=== PATIENT | male | born 1940 | race Caucasian/White ===

== ENCOUNTER 2017-03-12 10:52 | Inpatient (IN) | payer MEDICARE, OTHER ==
[~2017-03-12] VITALS: Ht 172.7 cm; Wt 50.7 kg
[~2017-03-12 10:52] MED LIST: 1-ME1LIQ PO; ASPI81TA82 PO; DUONI NEB; NEBUMIS6 INH
[2017-03-12 10:54] VITALS: BP 132/64; PULSE 120; RESP 16; TEMP 98.2; O2SAT 98
[2017-03-12 11:24] VITALS: BP 169/92; PULSE 114; RESP 19; O2SAT 99
[2017-03-12] MEDS ORDERED: CEFEPIME INJ 1,000 MG in SODIUM CHLORIDE 0.9% INJ 100 ML IV ONE (12:15)
[2017-03-12 12:27] LABS: AUTOMATED NEUTROPHIL # 0.4 TH/MM3 (1.8-7.7); BASOPHIL % 1.4 % (0.0-2.0); EOSINOPHIL % 4.9 % (0.0-4.0); HEMATOCRIT 29.8 % (39.0-51.0); LYMPH % 21.7 % (9.0-44.0); LYMPHOCYTE # 0.2 TH/MM3 (1.0-4.8); MEAN CELL VOLUME 85.4 FL (80.0-100.0); MEAN CORPUSCULAR HEMOGLOBIN 27.7 PG (27.0-34.0); MEAN CORPUSCULAR HGB CONC 32.5 % (32.0-36.0); MONO % 20.9 % (0.0-8.0); NEUT % 51.1 % (16.0-70.0); PLATELET COUNT 123 TH/MM3 (150-450); RED BLOOD COUNT 3.49 MIL/MM3 (4.50-5.90); RED CELL DISTRIBUTION WIDTH 19.8 % (11.6-17.2); WHITE BLOOD COUNT 0.9 TH/MM3 (4.0-11.0)
[2017-03-12 12:28] LABS: HEMO FLAGS AUTO DIFF
[2017-03-12] MEDS ORDERED: RESP: ALBUTEROL 0.63 MG/3 ML NEB (PRN) NEB (12:45)
[2017-03-12] MEDS ORDERED: ENALAPRILAT 1.25 MG/ML VIAL IV PUSH PRN (12:45)
[2017-03-12 12:50] LABS: ANION GAP 8 MEQ/L (5-15); AST (GOT) 17 U/L (15-37); BICARBONATE 24.5 MEQ/L (21.0-32.0); BLOOD UREA NITROGEN 17 MG/DL (7-18); CHLORIDE 107 MEQ/L (98-107); GLOMERULAR FILTRATION RATE 81 ML/MIN (>89); SODIUM (NA) 139 MEQ/L (136-145)
--- NOTE | 2017-03-12 12:50 | HHI.HP ---
[facility] No Primary Care Physician Admission Diagnosis neutropenic fever. Diagnoses: (1) Neutropenic fever Diagnosis: Principal Chief Complaint: ' my white cell count is low'. Travel History International Travel<30 Days: No Contact w/Intl Traveler <30 Da: No Traveled to Known Affected Are: No History of Present Illness patient is a 76 y/o male with history of metastatic rectal cancer with metastasis to the liver and the lung, was sent from his oncologist's office for further evaluation of neutropenic fever. he was diagnosed with rectal cancer in 2009 and has been on palliative chemotherapy; the last chemo session was two weeks ago. he says that he had a blood test done earlier which showed neutropenia. he reports on and off fever for the past few days; highest temperature was 100.8. otherwise he denies any new specific symptoms; no sob, productive cough, headache, chest pain, abdominal pain or urinary complaints. he was sent to ER by for further evaluation. Review of Systems Constitutional: COMPLAINS OF: Fever, DENIES: Weight loss, Chills, Night Sweats Eyes: DENIES: Blurred vision, Diplopia, Vision loss, Double Vision Ears, nose, mouth, throat: DENIES: Tinnitus, Vertigo, Throat pain, Epistaxis Respiratory: DENIES: Apneas, Cough, Snoring, Wheezing, Hemoptysis, Sputum production, Shortness of breath Cardiovascular: DENIES: Chest pain, Palpitations, Syncope, Dyspnea on Exertion , PND, Lower Extremity Edema, Orthopnea, Claudication Gastrointestinal: DENIES: Abdominal pain, Black stools, Bloody stools, Constipation, Diarrhea, Nausea, Vomiting, Difficulty Swallowing, Anorexia Genitourinary: DENIES: Urinary frequency, Urgency, Hematuria, Dysuria Musculoskeletal: DENIES: Joint pain, Muscle aches, Stiffness, Joint Swelling Integumentary: DENIES: Rash Neurologic: DENIES: Abnormal gait, Headache, Localized weakness, Paresthesias, Seizures, Speech Problems, Tremor, Poor Balance Psychiatric: DENIES: Anxiety, Confusion, Mood changes, Depression, Hallucinations, Agitation, Suicidal Ideation, Homicidal Ideation, Delusions Past Family Social History Past Medical History rectal cancer hypertension Past Surgical History tumor resection from the liver. port placement. Reported Medications neb treatment aspirin Allergies: Coded Allergies: No Known Allergies (Verified , 10/12/15) Active Ordered Medications Current Medications Cefepime HCl 1000 mg/Sodium Chloride 100 ml @ 200 mls/hr ONCE ONCE IV Last administered on 03/12/17t 12:28; Start 03/12/17 at 12:15; Stop 03/12/17 at 12 :44 Family History ovarian cancer in mother. Social History no smoking or drinking. Physical Exam Vital Signs Vital Signs Date Time Temp Pulse Resp B/P (MAP) Pulse Ox O2 Delivery O2 Flow Rate FiO2 03/12/17 11:24 114 19 169/92 (117) 99 Room Air 03/12/17 10:54 98.2 120 16 132/64 (86) 98 Physical Exam GENERAL: This is a well-nourished, well-developed patient, in no apparent distress. SKIN: No rashes, ecchymoses or lesions. Cool and dry. HEAD: Atraumatic. Normocephalic. No temporal or scalp tenderness. EYES: Pupils equal round and reactive. Extraocular motions intact. No scleral icterus. No injection or drainage. ENT: Nose without bleeding, purulent drainage or septal hematoma. Throat without erythema, tonsillar hypertrophy or exudate. Uvula midline. Airway patent. NECK: Trachea midline. No JVD or lymphadenopathy. Supple, nontender, no meningeal signs. CARDIOVASCULAR: Regular rate and rhythm without murmurs, gallops, or rubs. RESPIRATORY: Clear to auscultation. Breath sounds equal bilaterally. No wheezes , rales, or rhonchi. GASTROINTESTINAL: Abdomen soft, non-tender, nondistended. No hepato-splenomegaly , or palpable masses. No guarding. MUSCULOSKELETAL: Extremities without clubbing, cyanosis, or edema. No joint tenderness, effusion, or edema noted. No calf tenderness. Negative Homans sign bilaterally. NEUROLOGICAL: Awake and alert. Cranial nerves II through XII intact. Motor and sensory grossly within normal limits. Five out of 5 muscle strength in all muscle groups. Normal speech. Laboratory Laboratory Tests Test 03/12/17 12:00 White Blood Count 0.9 Red Blood Count 3.49 Hemoglobin 9.7 Hematocrit 29.8 Mean Corpuscular Volume 85.4 Mean Corpuscular Hemoglobin 27.7 Mean Corpuscular Hemoglobin Concent 32.5 Red Cell Distribution Width 19.8 Platelet Count 123 Mean Platelet Volume 6.9 Neutrophils (%) (Auto) 51.1 Lymphocytes (%) (Auto) 21.7 Monocytes (%) (Auto) 20.9 Eosinophils (%) (Auto) 4.9 Basophils (%) (Auto) 1.4 Neutrophils # (Auto) 0.4 Lymphocytes # (Auto) 0.2 Monocytes # (Auto) 0.2 Eosinophils # (Auto) 0.0 Basophils # (Auto) 0.0 CBC Comment AUTO DIFF Date/Time Source Procedure Growth Status 03/12/17 12:00 Blood Peripheral Aerobic Blood Culture Pending Received 03/12/17 12:00 Blood Peripheral Anaerobic Blood Culture Pending Received Result Diagram: 03/12/17 1200 Yvanrinmateusz VTE Risk Assessment Caprini VTE Risk Assessment: Mod/High Risk (score >= 2) Caprini Risk Assessment Model Point Value = 1 Point Value = 2 Point Value = 3 Point Value = 5 Age 41-60 Minor surgery BMI > 25 kg/m2 Swollen legs Varicose veins or History of unexplained or recurrent spontaneous Oral contraceptives or hormone replacement Sepsis (< 1 month) Serious lung disease, including pneumonia (< 1 month) Abnormal pulmonary function Acute myocardial infarction Congestive heart failure (< 1 month) History of inflammatory bowel disease Medical patient at bed rest Age 61-74 Arthroscopic surgery Major open surgery (> 45 min) Laparoscopic surgery (> 45 min) Malignancy Confined to bed (> 72 hours) Immobilizing plaster cast Central venous access Age >= 75 History of VTE Family history of VTE Factor V Leiden Prothrombin [id number] Lupus anticoagulant Anticardiolipin antibodies Elevated serum homocysteine Heparin-induced thrombocytopenia Other congenital or acquired thrombophilia Stroke (< 1 month) Elective arthroplasty Hip, pelvis, or leg fracture Acute spinal cord injury (< 1 month) Prophylaxis Regimen Total Risk Factor Score Risk Level Prophylaxis Regimen 0-1 Low Early ambulation 2 Moderate Order ONE of the following: *Sequential Compression Device (SCD) *Heparin 5000 units SQ BID 3-4 Higher Order ONE of the following medications: *Heparin 5000 units SQ TID *Enoxaparin/Lovenox 40 mg SQ daily (WT < 150 kg, CrCl > 30 mL/min) *Enoxaparin/Lovenox 30 mg SQ daily (WT < 150 kg, CrCl > 10-29 mL/min) *Enoxaparin/Lovenox 30 mg SQ BID (WT < 150 kg, CrCl > 30 mL/min) AND/OR *Sequential Compression Device (SCD) 5 or more Highest Order ONE of the following medications: *Heparin 5000 units SQ TID (Preferred with Epidurals) *Enoxaparin/Lovenox 40 mg SQ daily (WT < 150 kg, CrCl > 30 mL/min) *Enoxaparin/Lovenox 30 mg SQ daily (WT < 150 kg, CrCl > 10-29 mL/min) *Enoxaparin/Lovenox 30 mg SQ BID (WT < 150 kg, CrCl > 30 mL/min) AND *Sequential Compression Device (SCD) Assessment and Plan Assessment and Plan A/P - neutropenic fever with history of metastatic rectal cancer on chemotherapy; start on IV Cefepime- follow the cultures and CXR- monitor CBC- consult oncology and ID -hypertension; will verify the home meds- vasotec prn for now. -thrombocytopenia- due to chemo- will monitor -DVT prophylaxis; on SCD's . Discussed Condition With ER physician and the patient. Physician Certification 2 Midnight Certification Type: Admission for Inpatient Services Order for Inpatient Services The services are ordered in accordance with Medicare regulations or non- Medicare payer requirements, as applicable. In the case of services not specified as inpatient-only, they are appropriately provided as inpatient services in accordance with the 2-midnight benchmark. Estimated LOS (days): 2 days is the estimated time the patient will need to remain in the hospital, assuming treatment plan goals are met and no additional complications. Post-Hospital Plan: Home Rajesh Galindo MD Mar 12, 2017 12:50
[2017-03-12 12:53] LABS: ALKALINE PHOSPHATASE 72 U/L (45-117); ALT (GPT) 15 U/L (12-78); TOTAL BILIRUBIN ADULT 0.4 MG/DL (0.2-1.0)
--- NOTE | 2017-03-12 13:00 | RADRPT ---
EXAM DATE/TIME: 03/12/2017 12:07 [place] COMPARISON: CHEST SINGLE AP, October 16, 2015, 5:03. CHEST PA & LAT, December 24, 2014, 14:13. INDICATIONS : Short of breath, fever MEDICAL HISTORY : Carcinoma, colon. Carcinoma, lung. SURGICAL HISTORY : infusaport ENCOUNTER: Initial ACUITY: 1 day PAIN SCORE: Non-responsive. LOCATION: Bilateral chest FINDINGS: [id number] implanted on the right. Elevation of the left hemidiaphragm with trace pleural effusio n and minimal parenchymal changes. Moderate peribronchial thickening on the right. The portion of th e bony skeleton visualized is unremarkable. CONCLUSION: Elevation of the left hemidiaphragm with trace fluid and minimal parenchymal changes left base; impr guy in interval. Jv Pierre MD FACR on March 12, 2017 at 12:57 Board Certified Radiologist. This report was verified electronically.
[2017-03-12 13:15] LABS: BANDS 25 % (0-6); BASOPHILS 1 % (0-2); EOSINOPHILS 3 % (0-4); METAMYELOCYTES 1 % (0-1); NEUTROPHIL # MANUAL DIFF 0.5 TH/MM3 (1.8-7.7); POLYS (SEG NEUTROPHILS) 34 % (16-70); TOXIC GRANULATION 2+ (NORMAL); WBC DIFF SAMPLE 100
[2017-03-12 13:16] LABS: OVALOCYTES 1+ (NORMAL); PLATELET ESTIMATE SMEAR LOW (NORMAL); PLATELET MORPHOLOGY ENLARGED (NORMAL); SCAN/DIFF FINAL DIFF MANUAL
[2017-03-12] MEDS ORDERED: ONDANSETRON HCL 4 MG/2 ML VIAL IV PUSH PRN (14:15)
[2017-03-12] MEDS ORDERED: ACETAMINOPHEN 325 MG TAB PO PRN (14:15)
[2017-03-12] MEDS ORDERED: SODIUM CHLOR 0.9% 1000 ML INJ 1,000 ML IV ONE (14:15)
[2017-03-12 14:21] LABS: BACTERIA, URINE RARE /hpf; BLOOD, URINE NEG (NEG); COMMENT (UR) CULT NOT INDICATED; CULTURE IF INDICATED CULT NOT INDICATED; GLUCOSE,URINE NEG (NEG); HYALINE CAST, URINE 3 /lpf (RARE); KETONE, URINE NEG (NEG); MUCUS URINE FEW /lpf (OCC); NITRITE,URINE NEG (NEG); PH, URINE 5.5 (5.0-8.5); SQUAMOUS EPITHELIAL CELL URINE <1 /hpf (0-5); URINE COLOR LIGHT-YELLOW (YELLW/STRAW)
[2017-03-12] MEDS ORDERED: AMLO10TA2 PO (14:48)
--- NOTE | 2017-03-12 15:33 | PD ---
HPI Chief Complaint: Abnormal Results Time Seen by Provider: 11:14 Travel History International Travel<30 days: No Contact w/Intl Traveler<30days: No Traveled to known affect area: No History of Present Illness HPI This is a 76-year-old male with a history of colorectal cancer with metastases to his lung and liver, presents here at the request of his oncologist for neutropenic fever. The patient had low-grade fever over the last 4 days. He reports a cough with white phlegm. He denies any dysuria urgency or frequency. PFSH Past Medical History Arthritis: Yes Asthma: No Blood Disorders: No Anxiety: No Depression: No Heart Rhythm Problems: No Cancer: Yes (COLON, METS TO LIVER AND LUNG) Cardiovascular Problems: Yes High Cholesterol: No Chemotherapy: Yes Chest Pain: No Congestive Heart Failure: No COPD: No Diabetes: No Diminished Hearing: No Endocrine: No Gastrointestinal Disorders: Yes (HX COLON CA) GERD: Yes Genitourinary: No Hepatitis: No Hiatal Hernia: No Hypertension: Yes Immune Disorder: No Implanted Vascular Access Dvce: Yes (R SC PORT) Medical other: Yes (HAS HAD RADIATION X2 , CHEMOTHERAPY) Musculoskeletal: Yes (ARTHRITIS) Neurologic: No Psychiatric: No Reproductive: No Respiratory: Yes (LUNG CANCER, PNEUMONIA 12/2014) Immunizations Current: Yes Radiation Therapy: Yes (ABOUT A YR AGO) Sleep Apnea: No Thyroid Disease: No Past Surgical History Abdominal Surgery: Yes (LEFT PARTIAL LOBE OF LIVER REMOVED, COLON RESECTION) AICD: No Body Medical Devices: RIGHT IMPLANTED PORT Cardiac Surgery: No Ear Surgery: No Endocrine Surgery: No Eye Surgery: No Genitourinary Surgery: No Gynecologic Surgery: No Joint Replacement: No Oral Surgery: Yes Pacemaker: No Thoracic Surgery: Yes (RIGHT IMPLANTED PORT) Other Surgery: Yes Social History Alcohol Use: No Tobacco Use: No (QUIT 4 YEARS AGO) Substance Use: No Allergies-Medications (Allergen,Severity, Reaction): Coded Allergies: No Known Allergies (Verified , 10/12/15) Reported Meds & Prescriptions Reported Meds & Active Scripts Active Reported Amlodipine (Amlodipine Besylate) 10 Mg Tab 10 Mg PO DAILY Review of Systems Except as stated in HPI: all other systems reviewed are Neg General / Constitutional: Positive: Fever HENT: No: Headaches, Lightheadedness Cardiovascular: No: Chest Pain or Discomfort, Palpitations Respiratory: Positive: Cough, No: Shortness of Breath (white phlegm), Wheezing Gastrointestinal: No: Nausea, Vomiting, Abdominal Pain Genitourinary: No: Frequency, Dysuria, Decreased Urinary Output Skin: No Rash, No Lesions Neurologic: Positive: Weakness, No: Headache Physical Exam Narrative GENERAL: Thin ill appearing male in no acute respiratory distress. SKIN: Focused skin assessment warm/dry. HEAD: Atraumatic. Normocephalic. EYES: No scleral icterus. No injection or drainage. ENT: No nasal bleeding or discharge. Mucous membranes pink and moist. NECK: Trachea midline. Supple. CARDIOVASCULAR: Regular rate and rhythm. No murmur appreciated. RESPIRATORY: No accessory muscle use. Clear to auscultation. Breath sounds equal bilaterally. Decreased respiratory effort GASTROINTESTINAL: Abdomen soft, non-tender, nondistended. MUSCULOSKELETAL: No obvious deformities. No clubbing. No cyanosis. No edema. NEUROLOGICAL: Awake and alert. No obvious cranial nerve deficits. Motor grossly within normal limits. Normal speech. PSYCHIATRIC: Appropriate mood and affect; insight and judgment normal. Data Data Last Documented VS Vital Signs Date Time Temp Pulse Resp B/P (MAP) Pulse Ox O2 Delivery O2 Flow Rate FiO2 03/12/17 11:24 114 19 169/92 (117) 99 Room Air 03/12/17 10:54 98.2 Orders Orders Complete Blood Count With Diff (03/12/17 11:45) Comprehensive Metabolic Panel (03/12/17 11:45) Blood Culture (03/12/17 11:45) Urinalysis - C+S If Indicated (03/12/17 11:45) Chest, Pa & Lat (03/12/17 11:45) Iv Access Insert/Monitor (03/12/17 11:45) Ecg Monitoring (03/12/17 11:45) Oximetry (03/12/17 11:45) Cefepime Inj (Maxipime Inj) (03/12/17 12:15) Diet Heart Healthy (03/12/17 Lunch) Vital Signs (Adult) MARKEL.Q4H (03/12/17 12:33) Consult Medical Oncology (03/12/17 ) Consult Infectious Disease (03/12/17 ) Complete Blood Count With Diff (03/13/17 06:00) ^ Other Nursing Orders (03/12/17 12:33) Scd Bilateral/Knee High MARKEL.QSHIFT (03/12/17 12:33) Cefepime Inj (Maxipime Inj) (03/12/17 21:00) (Hub Use Only)Inp Phy Cons/Ref (03/12/17 ) (Hub Use Only)Inp Phy Cons/Ref (03/12/17 ) Admit To Inpatient (03/12/17 ) Inpatient Certification (03/12/17 ) Enalaprilat Inj (Vasotec Inj) (03/12/17 12:45) Albuterol Neb (Albuterol Neb) (03/12/17 12:45) Admit Order (Ed Use Only) (03/12/17 12:57) Labs Laboratory Tests Test 03/12/17 12:00 White Blood Count 0.9 TH/MM3 Red Blood Count 3.49 MIL/MM3 Hemoglobin 9.7 GM/DL Hematocrit 29.8 % Mean Corpuscular Volume 85.4 FL Mean Corpuscular Hemoglobin 27.7 PG Mean Corpuscular Hemoglobin Concent 32.5 % Red Cell Distribution Width 19.8 % Platelet Count 123 TH/MM3 Mean Platelet Volume 6.9 FL Neutrophils (%) (Auto) 51.1 % Lymphocytes (%) (Auto) 21.7 % Monocytes (%) (Auto) 20.9 % Eosinophils (%) (Auto) 4.9 % Basophils (%) (Auto) 1.4 % Neutrophils # (Auto) 0.4 TH/MM3 Lymphocytes # (Auto) 0.2 TH/MM3 Monocytes # (Auto) 0.2 TH/MM3 Eosinophils # (Auto) 0.0 TH/MM3 Basophils # (Auto) 0.0 TH/MM3 CBC Comment AUTO DIFF Differential Total Cells Counted 100 Neutrophils % (Manual) 34 % Band Neutrophils % 25 % Lymphocytes % 24 % Monocytes % 12 % Eosinophils % 3 % Basophils % 1 % Neutrophils # (Manual) 0.5 TH/MM3 Metamyelocytes 1 % Differential Comment FINAL DIFF MANUAL Toxic Granulation 2+ Platelet Estimate LOW Platelet Morphology Comment ENLARGED Ovalocytes 1+ Blood Urea Nitrogen 17 MG/DL Creatinine 0.91 MG/DL Random Glucose 104 MG/DL Total Protein 6.3 GM/DL Albumin 2.9 GM/DL Calcium Level 8.4 MG/DL Alkaline Phosphatase 72 U/L Aspartate Amino Transf (AST/SGOT) 17 U/L Alanine Aminotransferase (ALT/SGPT) 15 U/L Total Bilirubin 0.4 MG/DL Sodium Level 139 MEQ/L Potassium Level 4.0 MEQ/L Chloride Level 107 MEQ/L Carbon Dioxide Level 24.5 MEQ/L Anion Gap 8 MEQ/L Estimat Glomerular Filtration Rate 81 ML/MIN MDM Medical Decision Making Medical Screen Exam Complete: Yes Emergency Medical Condition: Yes Differential Diagnosis Neutropenia versus pancytopenia versus pneumonia versus UTI Narrative Course 76-year-old male presents with low blood count. Patient was called by his oncologist told to come in for admission. The patient has a mask in place when he arrived. No obvious source for his fever. The patient's been started on cefepime. He'll be admitted to the [facility] service. Diagnosis Primary Impression: Neutropenic fever Additional Impressions: Anemia Metastasis from rectal cancer Admitting Information Admitting Physician Requests: Admit Charles Medellin MD Mar 12, 2017 15:33
[2017-03-12 16:00] VITALS: BP 155/74; PULSE 110; RESP 17; TEMP 99.4; O2SAT 93
--- NOTE | 2017-03-12 19:47 | MB ---
cc: SOCOTER QUINONEZ M.D. DATE OF CONSULTATION 03/12/17 REASON FOR CONSULTATION Consult requested by hospitalist for followup of metastatic colon cancer in a patient who is admitted for neutropenic fever and sepsis. HISTORY OF PRESENT ILLNESS Fox is a 76-year-old male. He is well-known to me. He was diagnosed with colon cancer with liver and lung metastasis in January 2010. The patient had been treated with multiple lines of chemotherapy including FOLFOX, Avastin and now he is on FOLFIRI and Avastin. The patient has had significant response from the treatment. He has been running low grade fever and complaining of abdominal pain and postnasal drainage. He had called our office last week, Sunday. He was advised that he needs to report to the emergency room as he has neutropenia. However, the patient elected not to go to the emergency room. All weekend he stated that he was taking Tylenol and his fever comes down but then it goes up. He was feeling miserable over the weekend. Since he had an appointment with me today he decided to wait until he comes to the office this morning. The patient states that his temperature sometimes runs 95 then it goes up to 101 and when he takes the Tylenol or Motrin it comes down. He has been complaining of abdominal pain mostly on the right side which is mild to moderate. He denies any nausea or vomiting. He is complaining of anorexia. He denies any diarrhea or constipation. His CBC in the office this morning showed white count of 1.1, hemoglobin 10, platelet count 140, absolute neutrophil count of only 500. Because of severe neutropenia and running fever for almost 1 week I have advised him to come to the emergency room for further evaluation. In the emergency room Dr. Charles Medellin saw him and clearly looks ill. Dr. Moser had called me and we discussed that the patient should be admitted to the hospital for neutropenic sepsis. Blood culture and urine culture and chest x-ray were obtained and he was started on cefepime. The patient has been admitted by [facility] hospitalist. I have been asked to see the patient. The patient is in the room with his . His temperature is 99.4 at the present time, heart rate is 110, blood pressure is 155/74, O2 saturation 93%. He is still complaining of on-and-off abdominal pain but associated with no diarrhea or constipation or nausea or vomiting. He is complaining of postnasal drip. He denies any chills. The rest of the review of system is negative. PAST MEDICAL HISTORY Gastroesophageal reflux disease, asbestosis, hypertension, metastatic rectal cancer with metastasis to the liver and lung. PAST SURGICAL HISTORY Colon resection, cholecystectomy, [id number] placement. ALLERGIES None. MEDICATIONS 1. Amlodipine. 2. Avastin. 3. FOLFIRI chemotherapy. FAMILY HISTORY The patient's family history is not contributing to his HPI. SOCIAL HISTORY The patient does not smoke cigarettes, does not drink alcohol. He is and lives with his . PHYSICAL EXAMINATION GENERAL: Well-developed, well-nourished white male in no apparent distress. VITAL SIGNS: Temperature 99.4, heart rate is 110, blood pressure is 155/74. HEENT: PERRLA, EOMI, anicteric. No oral lesions noted. NECK: No lymphadenopathy noted. LUNGS: Lungs are clear. No wheezing, rhonchi or rales. HEART: Regular rate and rhythm. ABDOMEN: Abdomen is soft, diffusely tender. EXTREMITIES: No pedal edema. NEUROLOGY: Awake, alert, oriented x3. SKIN: No significant lesions are noted. ASSESSMENT 1. Severe neutropenia and bandemia with fever , most likely sepsis. 2. Anemia and thrombocytopenia due to the chemotherapy. 3. Metastatic rectal cancer currently on Avastin and FOLFIRI chemotherapy. 4. Hypertension stable. PLAN I have reviewed his available records on the EMR. I discussed with the patient and his who was present at the bedside. His CBC was repeated in the emergency room and the white count is down to 0.9, hemoglobin 9.7, platelet count is 123, absolute neutrophil count is 240. The patient has 25% bandemia. The comprehensive metabolic profile from today is normal except GFR is 81, calcium is 8.4, total protein is 6.3, albumin is 2.9. Urinalysis is negative.Urine Culture is not indicated. The blood cultures were done, the results of those are still pending. Chest x-ray does not show any pneumonia. There is elevation of the left hemidiaphragm with trace fluid and minimal parenchymal changes noted in the left base improved in interval. The source of fever is unknown at the present time but the patient needs to be treated with empiric IV antibiotic for neutropenic fever/sepsis. He is currently on cefepime. I will start him on Neupogen 480 micrograms for severe neutropenia. I discussed the side effects of the Neupogen. The patient has agreed. Further recommendation based on his hospital stay. Thank you for asking my opinion. Apoorva Quinonez MD /RENNY /6:57 PM /7:22 PM MTDD
[2017-03-12 20:00] VITALS: BP 147/94; PULSE 102; RESP 18; TEMP 97.8; O2SAT 94
[2017-03-12] MEDS ORDERED: CEFEPIME INJ 2,000 MG in SODIUM CHLORIDE 0.9% INJ 100 ML IV SCH (21:00)
[2017-03-12] MEDS: FILGRASTIM 480 MCG/1.6 ML VIAL SQ SCH (21:33)
[2017-03-12] MEDS: CEFEPIME INJ 2,000 MG in SODIUM CHLORIDE 0.9% INJ 100 ML IV SCH (21:34)
[2017-03-13] VITALS: BP 133/94; PULSE 98; RESP 18; TEMP 98.5; O2SAT 96
[2017-03-13 04:00] VITALS: BP 110/63; PULSE 92; RESP 18; TEMP 97.4; O2SAT 97
[2017-03-13] MEDS: CEFEPIME INJ 2,000 MG in SODIUM CHLORIDE 0.9% INJ 100 ML IV SCH ×3 (05:38→20:01)
[2017-03-13 06:01] LABS: HEMATOCRIT 30.6 % (39.0-51.0); MEAN CELL VOLUME 85.3 FL (80.0-100.0); MEAN CORPUSCULAR HEMOGLOBIN 27.6 PG (27.0-34.0); MEAN CORPUSCULAR HGB CONC 32.4 % (32.0-36.0); PLATELET COUNT 111 TH/MM3 (150-450); RED BLOOD COUNT 3.59 MIL/MM3 (4.50-5.90); RED CELL DISTRIBUTION WIDTH 19.8 % (11.6-17.2)
[2017-03-13 06:16] LABS: HEMO FLAGS AUTO DIFF
[2017-03-13 08:00] VITALS: BP 127/68; PULSE 92; RESP 16; TEMP 97.6; O2SAT 96
[2017-03-13 08:19] LABS: BANDS 29 % (0-6); BASOPHILS 1 % (0-2); EOSINOPHILS 3 % (0-4); METAMYELOCYTES 9 % (0-1); NEUTROPHIL # MANUAL DIFF 1.4 TH/MM3 (1.8-7.7); POLYS (SEG NEUTROPHILS) 30 % (16-70); WBC DIFF SAMPLE 100
[2017-03-13 08:20] LABS: PLATELET ESTIMATE SMEAR LOW (NORMAL); PLATELET MORPHOLOGY NORMAL (NORMAL)
[2017-03-13 08:21] LABS: OVALOCYTES 1+ (NORMAL); SCAN/DIFF FINAL DIFF MANUAL; TOXIC GRANULATION 1+ (NORMAL)
--- NOTE | 2017-03-13 09:06 | PD.ONC.PN ---
Subjective Subjective Remarks Afebrile overnight. Patient resting in bed in nad. Feeling much improved today. No further abdominal pain. States his abdominal pain went away last night after he had a bowel movement. Ate breakfast this morning. Objective Data Date Time Temp Pulse Resp B/P (MAP) Pulse Ox O2 Delivery O2 Flow Rate FiO2 03/13/17 04:00 97.4 92 18 110/63 (79) 97 03/13/17 00:00 98.5 98 18 133/94 (107) 96 03/12/17 20:00 97.8 102 18 147/94 (111) 94 03/12/17 16:00 99.4 110 17 155/74 (101) 93 03/12/17 11:24 114 19 169/92 (117) 99 Room Air 03/12/17 10:54 98.2 120 16 132/64 (86) 98 03/13/17 03/13/17 03/13/17 07:00 15:00 23:00 Intake Total 850 ml Output Total 200 ml Balance 650 ml Result Diagram: 03/13/17 0545 03/12/17 1200 Laboratory Results Laboratory Tests Test 03/12/17 12:00 03/12/17 13:45 03/13/17 05:45 White Blood Count 0.9 TH/MM3 2.0 TH/MM3 Red Blood Count 3.49 MIL/MM3 3.59 MIL/MM3 Hemoglobin 9.7 GM/DL 9.9 GM/DL Hematocrit 29.8 % 30.6 % Mean Corpuscular Volume 85.4 FL 85.3 FL Mean Corpuscular Hemoglobin 27.7 PG 27.6 PG Mean Corpuscular Hemoglobin Concent 32.5 % 32.4 % Red Cell Distribution Width 19.8 % 19.8 % Platelet Count 123 TH/MM3 111 TH/MM3 Mean Platelet Volume 6.9 FL 6.9 FL Neutrophils (%) (Auto) 51.1 % Lymphocytes (%) (Auto) 21.7 % Monocytes (%) (Auto) 20.9 % Eosinophils (%) (Auto) 4.9 % Basophils (%) (Auto) 1.4 % Neutrophils # (Auto) 0.4 TH/MM3 Lymphocytes # (Auto) 0.2 TH/MM3 Monocytes # (Auto) 0.2 TH/MM3 Eosinophils # (Auto) 0.0 TH/MM3 Basophils # (Auto) 0.0 TH/MM3 CBC Comment AUTO DIFF AUTO DIFF Differential Total Cells Counted 100 100 Neutrophils % (Manual) 34 % 30 % Band Neutrophils % 25 % 29 % Lymphocytes % 24 % 16 % Monocytes % 12 % 12 % Eosinophils % 3 % 3 % Basophils % 1 % 1 % Neutrophils # (Manual) 0.5 TH/MM3 1.4 TH/MM3 Metamyelocytes 1 % 9 % Differential Comment FINAL DIFF MANUAL FINAL DIFF MANUAL Toxic Granulation 2+ 1+ Platelet Estimate LOW LOW Platelet Morphology Comment ENLARGED NORMAL Ovalocytes 1+ 1+ Blood Urea Nitrogen 17 MG/DL Creatinine 0.91 MG/DL Random Glucose 104 MG/DL Total Protein 6.3 GM/DL Albumin 2.9 GM/DL Calcium Level 8.4 MG/DL Alkaline Phosphatase 72 U/L Aspartate Amino Transf (AST/SGOT) 17 U/L Alanine Aminotransferase (ALT/SGPT) 15 U/L Total Bilirubin 0.4 MG/DL Sodium Level 139 MEQ/L Potassium Level 4.0 MEQ/L Chloride Level 107 MEQ/L Carbon Dioxide Level 24.5 MEQ/L Anion Gap 8 MEQ/L Estimat Glomerular Filtration Rate 81 ML/MIN Urine Color LIGHT-YELLOW Urine Turbidity CLEAR Urine pH 5.5 Urine Specific Harris 1.014 Urine Protein NEG mg/dL Urine Glucose (UA) NEG mg/dL Urine Ketones NEG mg/dL Urine Occult Blood NEG Urine Nitrite NEG Urine Bilirubin NEG Urine Urobilinogen LESS THAN 2.0 MG/DL Urine Leukocyte Esterase NEG Urine RBC 1 /hpf Urine WBC 3 /hpf Urine Squamous Epithelial Cells <1 /hpf Urine Bacteria RARE /hpf Urine Hyaline Casts 3 /lpf Urine Mucus FEW /lpf Microscopic Urinalysis Comment CULT NOT INDICATED Culture Results Microbiology Date/Time Source Procedure Growth Status 03/12/17 12:00 Blood Peripheral Aerobic Blood Culture Pending Received 03/12/17 12:00 Blood Peripheral Anaerobic Blood Culture Pending Received 03/12/17 12:00 Blood Peripheral Aerobic Blood Culture Pending Received 03/12/17 12:00 Blood Peripheral Anaerobic Blood Culture Pending Received Imaging Studies Last 24 hours Impressions Chest X-Ray 03/12/17 1145 Signed Impressions: Service Date/Time: Sunday, March 12, 2017 12:07 - CONCLUSION: Elevation of the left hemidiaphragm with trace fluid and minimal parenchymal changes left base; improved in interval. Jv Pierre MD FACR Administered Medications Medications (Trade) Dose Ordered Sig/Jaki Route PRN Reason Start Time Stop Time Status Last Admin Dose Admin Cefepime HCl 2000 mg/Sodium Chloride 100 ml @ 200 mls/hr Q8H IV 03/12/17 21:00 03/13/17 05:38 Filgrastim (Neupogen Inj) 480 mcg DAILY@14 SQ 03/12/17 20:00 03/12/17 21:33 Objective Remarks GENERAL: Pleasant elderly male supine in bed resting. SKIN: Warm and dry. HEAD: Normocephalic. EYES: No injection or drainage. NECK: trachea midline. CARDIOVASCULAR: Regular rate and rhythm RESPIRATORY: Breath sounds equal bilaterally. No accessory muscle use. GASTROINTESTINAL: Abdomen soft, non-tender, nondistended. MUSCULOSKELETAL: No cyanosis Assessment/Plan Problem List: (1) Neutropenic fever ICD Codes: D70.9 - Neutropenia, unspecified; R50.81 - Fever presenting with conditions classified elsewhere Plan: 03/13: continue antibiotics and neupogen. monitor CBC. --BC pending --urinalysis is negative --Chest x-ray does not show any pneumonia. --on cefepime. --on Neupogen 480 micrograms for severe neutropenia. (2) Colon cancer metastasized to lung ICD Codes: C18.9 - Carcinoma of colon metastatic to lung; C78.00 - Secondary malignant neoplasm of unspecified lung Status: Chronic Plan: -- diagnosed with colon cancer with liver and lung metastasis in January 2010. -- treated with multiple lines of chemotherapy including FOLFOX, Avastin and now he is on FOLFIRI and Avastin. --has had significant response from the treatment. (3) Anemia due to antineoplastic chemotherapy ICD Codes: D64.81 - Anemia due to antineoplastic chemotherapy; T45.1X5A - Adverse effect of antineoplastic and immunosuppressive drugs, initial encounter (4) thrombocytopenia due to chemotherapy Assessment 76y/o male with metastatic colon cancer in a patient who is admitted for neutropenic fever and sepsis. 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 Attending Statement The exam, history, and the medical decision-making described in the above note were completed with the assistance of the mid-level provider. I reviewed and agree with the findings presented. I attest that I had a [id number] encounter with the patient on the same day, and personally performed and documented my assessment and findings in the medical record. Patient feels better Abd pain has resolved WBC is coming up Continue neupogen and antibiotic Jyoti Gonzales Mar 13, 2017 09:06 Andrew Quinonez MD Mar 14, 2017 00:25
[2017-03-13 12:00] VITALS: BP 127/66; PULSE 98; RESP 16; TEMP 97; O2SAT 97
[2017-03-13] MEDS: FILGRASTIM 480 MCG/1.6 ML VIAL SQ SCH (13:07)
--- NOTE | 2017-03-13 13:51 | HHI.PR ---
Subjective Remarks No further fevers overnight. Neutropenia remains but has shifted from 0.9-2.0 for white blood cell count. Patient has no new complaints. He denies any cough or burning urination. Objective Vital Signs Date Time Temp Pulse Resp B/P (MAP) Pulse Ox O2 Delivery O2 Flow Rate FiO2 03/13/17 12:00 97.0 98 16 127/66 (86) 97 03/13/17 08:00 97.6 92 16 127/68 (87) 96 03/13/17 04:00 97.4 92 18 110/63 (79) 97 03/13/17 00:00 98.5 98 18 133/94 (107) 96 03/12/17 20:00 97.8 102 18 147/94 (111) 94 03/12/17 16:00 99.4 110 17 155/74 (101) 93 I/O 03/12/17 03/12/17 03/12/17 03/13/17 03/13/17 03/13/17 07:00 15:00 23:00 07:00 15:00 23:00 Intake Total 100 ml 850 ml 350 ml Output Total 450 ml 200 ml 150 ml Balance -350 ml 650 ml 200 ml Intake IV Total 100 ml 850 ml 350 ml Output Urine Total 450 ml 200 ml 150 ml # Bowel Movements 0 Result Diagram: 03/13/17 0545 03/12/17 1200 Objective Remarks GENERAL: NAD, A&Ox3 HEAD: Normocephalic. NECK: Supple, trachea midline. No lymphadenopathy. EYES: No scleral icterus. No injection or drainage. CARDIOVASCULAR: Regular rate and rhythm without murmurs, gallops, or rubs. RESPIRATORY: Breath sounds equal bilaterally. No accessory muscle use. GASTROINTESTINAL: Abdomen soft, non-tender, nondistended. MUSCULOSKELETAL: No cyanosis, or edema. SKIN: Warm and dry. NEURO: No focal neurological deficitis. A/P Problem List: (1) thrombocytopenia due to chemotherapy (2) Colon cancer metastasized to lung ICD Code: C18.9 - Carcinoma of colon metastatic to lung; C78.00 - Secondary malignant neoplasm of unspecified lung Status: Chronic (3) Anemia due to antineoplastic chemotherapy ICD Code: D64.81 - Anemia due to antineoplastic chemotherapy; T45.1X5A - Adverse effect of antineoplastic and immunosuppressive drugs, initial encounter (4) Neutropenic fever ICD Code: D70.9 - Neutropenia, unspecified; R50.81 - Fever presenting with conditions classified elsewhere (5) Anemia ICD Code: D64.9 - Anemia Status: Chronic Assessment and Plan Assessment and Plan 76-year-old male admitted secondary to neutropenic fever, baseline of colon cancer with metastasis to the lung. No fevers overnight. White blood cell count has improved. Neutropenic fever Neutropenia Continue to monitor for any recurrence of fevers Continue IV cefepime Follow CBC Hematology following ID following Hypertension Continue as needed Vasotec IV Follow Blood Pressures Thrombocytopenia Anemia Secondary to chemotherapy Continue to monitor levels DVT prophylaxis Continue SCDs Kian Lau MD Mar 13, 2017 13:51
[2017-03-13 16:00] VITALS: BP 127/63; PULSE 90; RESP 16; TEMP 97.7; O2SAT 96
[2017-03-13 16:23] LABS: BICARBONATE 23.8 MEQ/L (21.0-32.0); POTASSIUM 4.1 MEQ/L (3.5-5.1)
--- NOTE | 2017-03-13 17:46 | PD.ID.CON ---
History of Present Illness Service ID Consult Requested By Dr Samaniego Reason for Consult neutropenic fever Primary Care Physician No Primary Care Physician Diagnoses: History of Present Illness 76 yo male with h/o of metastatic colonm cancer, on chemotherapy, usually briefly goes neutropenic after chemo, but quickly rebounds presented with 2 days of fever, chills, lower abdominal pain and ANC of 400 Pt was started on broad spectrum abx (cefepime) and his fever resolved His abdominla pain also resolved His blood clx remain negative at 1 day Review of Systems Except as stated in HPI: all other systems reviewed are Neg Past Family Social History Allergies: Coded Allergies: No Known Allergies (Verified , 10/12/15) Past Medical History Gastroesophageal reflux disease, asbestosis, hypertension, metastatic rectal cancer with metastasis to the liver and lung. Past Surgical History Colon resection, cholecystectomy, [id number] placement. Active Ordered Medications Medications where reviewed in EMR Antibiotics Include: cefepime Family History The patient's family history is not contributing to his current problem Social History The patient does not smoke cigarettes, does not drink alcohol. He is and lives with his . Physical Exam Vital Signs Vital Signs Date Time Temp Pulse Resp B/P (MAP) Pulse Ox O2 Delivery O2 Flow Rate FiO2 03/13/17 16:00 97.7 90 16 127/63 (84) 96 03/13/17 12:00 97.0 98 16 127/66 (86) 97 03/13/17 08:00 97.6 92 16 127/68 (87) 96 03/13/17 04:00 97.4 92 18 110/63 (79) 97 03/13/17 00:00 98.5 98 18 133/94 (107) 96 03/12/17 20:00 97.8 102 18 147/94 (111) 94 Physical Exam CONSTITUTIONAL/GENERAL: This is a thin undernourishe patient, in no apparent distress. TUBES/LINES/DRAINS: PORT in place R chest no skin changes or tenderness to palpation SKIN: No jaundice, rashes, or lesions. Skin temperature appropriate. Not diaphoretic. HEAD: Atraumatic. Normocephalic. EYES: Pupils equal and round and reactive. Extraocular motions intact. No scleral icterus. No injection or drainage. Fundi not examined. ENT: Hearing grossly normal. Nose without bleeding or purulent drainage. Oral mucosae moist w/o mucositis without visible erythema, exudates, masses, or lesions. Edentulous NECK: Trachea midline. Supple, nontender. CARDIOVASCULAR: Regular rate and rhythm without murmurs, gallops, or rubs. No JVD. Peripheral pulses symmetric. RESPIRATORY/CHEST: Symmetric, unlabored respirations. Clear to auscultation. Breath sounds equal bilaterally. No wheezes, rales, or rhonchi. GASTROINTESTINAL: Abdomen soft, non-tender, nondistended. No hepato-splenomegaly , or palpable masses. No guarding. Bowel sounds present. Well healed med laparotomy scar GENITOURINARY: Without palpable bladder distension. MUSCULOSKELETAL: Extremities without clubbing, cyanosis, or edema. No joint tenderness or effusion noted. No calf tenderness. No mottling or clubbing. LYMPHATICS: No palpable cervical or supraclavicular adenopathy. NEUROLOGICAL: Awake and alert. Motor and sensory grossly within normal limits. Follows commands. Clear speech . Moves all extremities. PSYCHIATRIC: No obvious anxiety/depression. no apparent hallucinations or other psychotic thought process. Laboratory Laboratory Tests Test 03/13/17 05:45 03/13/17 15:17 White Blood Count 2.0 Red Blood Count 3.59 Hemoglobin 9.9 Hematocrit 30.6 Mean Corpuscular Volume 85.3 Mean Corpuscular Hemoglobin 27.6 Mean Corpuscular Hemoglobin Concent 32.4 Red Cell Distribution Width 19.8 Platelet Count 111 Mean Platelet Volume 6.9 CBC Comment AUTO DIFF Differential Total Cells Counted 100 Neutrophils % (Manual) 30 Band Neutrophils % 29 Lymphocytes % 16 Monocytes % 12 Eosinophils % 3 Basophils % 1 Neutrophils # (Manual) 1.4 Metamyelocytes 9 Differential Comment FINAL DIFF MANUAL Toxic Granulation 1+ Platelet Estimate LOW Platelet Morphology Comment NORMAL Ovalocytes 1+ Blood Urea Nitrogen 13 Creatinine 0.85 Random Glucose 100 Calcium Level 8.2 Sodium Level 137 Potassium Level 4.1 Chloride Level 106 Carbon Dioxide Level 23.8 Anion Gap 7 Estimat Glomerular Filtration Rate 88 Date/Time Source Procedure Growth Status 03/12/17 12:00 Blood Peripheral Aerobic Blood Culture - Preliminary NO GROWTH IN 1 DAY Resulted 03/12/17 12:00 Blood Peripheral Anaerobic Blood Culture - Preliminary NO GROWTH IN 1 DAY Resulted Result Diagram: 03/13/17 0545 03/13/17 1517 Imaging Last Impressions Chest X-Ray 03/12/17 1145 Signed Impressions: Service Date/Time: Sunday, March 12, 2017 12:07 - CONCLUSION: Elevation of the left hemidiaphragm with trace fluid and minimal parenchymal changes left base; improved in interval. Jv Pierre MD FACR Assessment and Plan Assessment and Plan Metastatic colon ca, sp chemo Neutroepnic fever, resolved on cefepime - clx negative so far cont cefepime fu blood clx if blood clx negative and ANC > 500 x 2 days or more will dc abx Swathi Rocha MD Mar 13, 2017 17:46
[2017-03-13 20:00] VITALS: BP 126/63; PULSE 103; RESP 18; TEMP 98.8; O2SAT 95
[2017-03-14] VITALS: BP 111/56; PULSE 99; RESP 18; TEMP 97.7; O2SAT 95
[2017-03-14] MEDS: CEFEPIME INJ 2,000 MG in SODIUM CHLORIDE 0.9% INJ 100 ML IV SCH ×2 (04:39→12:33)
[2017-03-14 04:47] LABS: AUTOMATED NEUTROPHIL # 3.7 TH/MM3 (1.8-7.7); BASOPHIL % 0.5 % (0.0-2.0); EOSINOPHIL # 0.1 TH/MM3 (0-0.4); EOSINOPHIL % 2.8 % (0.0-4.0); HEMATOCRIT 29.7 % (39.0-51.0); LYMPH % 9.3 % (9.0-44.0); LYMPHOCYTE # 0.5 TH/MM3 (1.0-4.8); MEAN CELL VOLUME 85.4 FL (80.0-100.0); MEAN CORPUSCULAR HEMOGLOBIN 28.5 PG (27.0-34.0); MEAN CORPUSCULAR HGB CONC 33.3 % (32.0-36.0); MONO % 14.8 % (0.0-8.0); NEUT % 72.6 % (16.0-70.0); PLATELET COUNT 108 TH/MM3 (150-450); RED BLOOD COUNT 3.47 MIL/MM3 (4.50-5.90); RED CELL DISTRIBUTION WIDTH 20.2 % (11.6-17.2); WHITE BLOOD COUNT 5.1 TH/MM3 (4.0-11.0)
[2017-03-14 04:57] LABS: HEMO FLAGS AUTO DIFF
[2017-03-14 05:10] LABS: ALT (GPT) 7 U/L (12-78); ANION GAP 7 MEQ/L (5-15); AST (GOT) 17 U/L (15-37); BICARBONATE 24.1 MEQ/L (21.0-32.0); CHLORIDE 106 MEQ/L (98-107); GLOMERULAR FILTRATION RATE 85 ML/MIN (>89); POTASSIUM 4.2 MEQ/L (3.5-5.1); SODIUM (NA) 137 MEQ/L (136-145)
[2017-03-14 05:13] LABS: ALKALINE PHOSPHATASE 70 U/L (45-117); BLOOD UREA NITROGEN 14 MG/DL (7-18); TOTAL BILIRUBIN ADULT 0.7 MG/DL (0.2-1.0)
[2017-03-14 08:00] VITALS: BP 120/63; PULSE 100; RESP 18; TEMP 97.1; O2SAT 95
[2017-03-14 08:35] LABS: BANDS 34 % (0-6); DOHLE BODIES PRESENT (NONE SEEN); EOSINOPHILS 1 % (0-4); MYELOCYTES 1 % (0-0); NEUTROPHIL # MANUAL DIFF 3.7 TH/MM3 (1.8-7.7); PLATELET ESTIMATE SMEAR LOW (NORMAL); PLATELET MORPHOLOGY NORMAL (NORMAL); POLYS (SEG NEUTROPHILS) 37 % (16-70); SCAN/DIFF FINAL DIFF MANUAL; WBC DIFF SAMPLE 100
[2017-03-14] MEDS ORDERED: FILGRASTIM 480 MCG/1.6 ML VIAL SQ SCH ×2 (11:00→14:00)
[2017-03-14 12:00] VITALS: BP 132/61; PULSE 91; RESP 18; TEMP 97.2; O2SAT 95
--- NOTE | 2017-03-14 12:36 | PD.ONC.PN ---
Subjective Subjective Remarks Afebrile overnight. Patient resting in bed in nad. Fully dressed and ready to leave. He is feeling much better and eager to go home. Objective Data Date Time Temp Pulse Resp B/P (MAP) Pulse Ox O2 Delivery O2 Flow Rate FiO2 03/14/17 08:00 97.1 100 18 120/63 (82) 95 03/14/17 00:00 97.7 99 18 111/56 (74) 95 03/13/17 20:00 98.8 103 18 126/63 (84) 95 03/13/17 16:00 97.7 90 16 127/63 (84) 96 03/14/17 03/14/17 03/14/17 07:00 15:00 23:00 Output Total 300 ml Balance -300 ml Result Diagram: 03/14/17 0430 03/14/17 0430 Laboratory Results Laboratory Tests Test 03/13/17 15:17 03/14/17 04:30 Blood Urea Nitrogen 13 MG/DL 14 MG/DL Creatinine 0.85 MG/DL 0.87 MG/DL Random Glucose 100 MG/DL 86 MG/DL Calcium Level 8.2 MG/DL 8.4 MG/DL Sodium Level 137 MEQ/L 137 MEQ/L Potassium Level 4.1 MEQ/L 4.2 MEQ/L Chloride Level 106 MEQ/L 106 MEQ/L Carbon Dioxide Level 23.8 MEQ/L 24.1 MEQ/L Anion Gap 7 MEQ/L 7 MEQ/L Estimat Glomerular Filtration Rate 88 ML/MIN 85 ML/MIN White Blood Count 5.1 TH/MM3 Red Blood Count 3.47 MIL/MM3 Hemoglobin 9.9 GM/DL Hematocrit 29.7 % Mean Corpuscular Volume 85.4 FL Mean Corpuscular Hemoglobin 28.5 PG Mean Corpuscular Hemoglobin Concent 33.3 % Red Cell Distribution Width 20.2 % Platelet Count 108 TH/MM3 Mean Platelet Volume 7.4 FL Neutrophils (%) (Auto) 72.6 % Lymphocytes (%) (Auto) 9.3 % Monocytes (%) (Auto) 14.8 % Eosinophils (%) (Auto) 2.8 % Basophils (%) (Auto) 0.5 % Neutrophils # (Auto) 3.7 TH/MM3 Lymphocytes # (Auto) 0.5 TH/MM3 Monocytes # (Auto) 0.8 TH/MM3 Eosinophils # (Auto) 0.1 TH/MM3 Basophils # (Auto) 0.0 TH/MM3 CBC Comment AUTO DIFF Differential Total Cells Counted 100 Neutrophils % (Manual) 37 % Band Neutrophils % 34 % Lymphocytes % 16 % Monocytes % 11 % Eosinophils % 1 % Neutrophils # (Manual) 3.7 TH/MM3 Myelocytes 1 % Differential Comment FINAL DIFF MANUAL Dohle Bodies PRESENT Platelet Estimate LOW Platelet Morphology Comment NORMAL Total Protein 6.0 GM/DL Albumin 2.5 GM/DL Alkaline Phosphatase 70 U/L Aspartate Amino Transf (AST/SGOT) 17 U/L Alanine Aminotransferase (ALT/SGPT) 7 U/L Total Bilirubin 0.7 MG/DL Culture Results Microbiology Date/Time Source Procedure Growth Status 03/12/17 12:00 Blood Peripheral Aerobic Blood Culture - Preliminary NO GROWTH IN 2 DAYS Resulted 03/12/17 12:00 Blood Peripheral Anaerobic Blood Culture - Preliminary NO GROWTH IN 2 DAYS Resulted 03/12/17 12:00 Blood Peripheral Aerobic Blood Culture - Preliminary NO GROWTH IN 2 DAYS Resulted 03/12/17 12:00 Blood Peripheral Anaerobic Blood Culture - Preliminary NO GROWTH IN 2 DAYS Resulted Administered Medications Medications (Trade) Dose Ordered Sig/Jaki Route PRN Reason Start Time Stop Time Status Last Admin Dose Admin Cefepime HCl 2000 mg/Sodium Chloride 100 ml @ 200 mls/hr Q8H IV 03/12/17 21:00 03/14/17 04:39 Filgrastim (Neupogen Inj) 480 mcg DAILY@14 SQ 03/14/17 11:00 03/14/17 10:47 Objective Remarks GENERAL: Elderly male sitting up in bed in [facility]. SKIN: Warm and dry. HEAD: Normocephalic. EYES: No injection or drainage. NECK: Supple, trachea midline. CARDIOVASCULAR: Regular rate and rhythm RESPIRATORY: diminished at bases, anterior brown clear. GASTROINTESTINAL: Abdomen soft, non-tender, nondistended. EXTREMITIES: No cyanosis NEUROLOGICAL: awake and alert, normal speech. Assessment/Plan Problem List: (1) Neutropenic fever ICD Codes: D70.9 - Neutropenia, unspecified; R50.81 - Fever presenting with conditions classified elsewhere Plan: 03/14: WBC recovered. afebrile. clear for discharge from oncology perspective. follow up in clinic in 1-2 weeks. --BC no growth --urinalysis is negative --Chest x-ray does not show any pneumonia. --on cefepime. --on Neupogen 480 micrograms for severe neutropenia. (2) Colon cancer metastasized to lung ICD Codes: C18.9 - Carcinoma of colon metastatic to lung; C78.00 - Secondary malignant neoplasm of unspecified lung Status: Chronic Plan: -- diagnosed with colon cancer with liver and lung metastasis in January 2010. -- treated with multiple lines of chemotherapy including FOLFOX, Avastin and now he is on FOLFIRI and Avastin. --has had significant response from the treatment. (3) Anemia due to antineoplastic chemotherapy ICD Codes: D64.81 - Anemia due to antineoplastic chemotherapy; T45.1X5A - Adverse effect of antineoplastic and immunosuppressive drugs, initial encounter (4) thrombocytopenia due to chemotherapy Assessment 76y/o male with metastatic colon cancer in a patient who is admitted for neutropenic fever and sepsis. 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 Attending Statement The exam, history, and the medical decision-making described in the above note were completed with the assistance of the mid-level provider. I reviewed and agree with the findings presented. I attest that I had a [id number] encounter with the patient on the same day, and personally performed and documented my assessment and findings in the medical record. NO more fevers. Neutropenia has resolved. wants to go home. BC are neg ok to d/c FU as outpt 1-2 weeks. Jyoti Gonzales Mar 14, 2017 12:36 Andrew Quinonez MD Mar 14, 2017 17:44
[2017-03-14 16:00] VITALS: BP 139/63; PULSE 88; RESP 18; TEMP 97.2; O2SAT 95
--- NOTE | 2017-03-14 16:37 | HHI.IDPN ---
Subjective Subjective Remarks " I feel great" no fever ANC 3700 denies abd pain wants to go home no diarrhea Antibiotics cefepime Allergies: Coded Allergies: No Known Allergies (Verified , 10/12/15) Objective . Vital Signs Date Time Temp Pulse Resp B/P (MAP) Pulse Ox O2 Delivery O2 Flow Rate FiO2 03/14/17 16:00 97.2 88 18 139/63 (88) 95 03/14/17 12:00 97.2 91 18 132/61 (84) 95 03/14/17 08:00 97.1 100 18 120/63 (82) 95 03/14/17 00:00 97.7 99 18 111/56 (74) 95 03/13/17 20:00 98.8 103 18 126/63 (84) 95 . Laboratory Tests Test 03/13/17 05:45 03/14/17 04:30 White Blood Count 2.0 TH/MM3 5.1 TH/MM3 Red Blood Count 3.59 MIL/MM3 3.47 MIL/MM3 Hemoglobin 9.9 GM/DL 9.9 GM/DL Hematocrit 30.6 % 29.7 % Mean Corpuscular Volume 85.3 FL 85.4 FL Mean Corpuscular Hemoglobin 27.6 PG 28.5 PG Mean Corpuscular Hemoglobin Concent 32.4 % 33.3 % Red Cell Distribution Width 19.8 % 20.2 % Platelet Count 111 TH/MM3 108 TH/MM3 Mean Platelet Volume 6.9 FL 7.4 FL CBC Comment AUTO DIFF AUTO DIFF Differential Total Cells Counted 100 100 Neutrophils % (Manual) 30 % 37 % Band Neutrophils % 29 % 34 % Lymphocytes % 16 % 16 % Monocytes % 12 % 11 % Eosinophils % 3 % 1 % Basophils % 1 % Neutrophils # (Manual) 1.4 TH/MM3 3.7 TH/MM3 Metamyelocytes 9 % Differential Comment FINAL DIFF MANUAL FINAL DIFF MANUAL Toxic Granulation 1+ Platelet Estimate LOW LOW Platelet Morphology Comment NORMAL NORMAL Ovalocytes 1+ Neutrophils (%) (Auto) 72.6 % Lymphocytes (%) (Auto) 9.3 % Monocytes (%) (Auto) 14.8 % Eosinophils (%) (Auto) 2.8 % Basophils (%) (Auto) 0.5 % Neutrophils # (Auto) 3.7 TH/MM3 Lymphocytes # (Auto) 0.5 TH/MM3 Monocytes # (Auto) 0.8 TH/MM3 Eosinophils # (Auto) 0.1 TH/MM3 Basophils # (Auto) 0.0 TH/MM3 Myelocytes 1 % Dohle Bodies PRESENT Laboratory Tests Test 03/13/17 15:17 03/14/17 04:30 Blood Urea Nitrogen 13 MG/DL 14 MG/DL Creatinine 0.85 MG/DL 0.87 MG/DL Random Glucose 100 MG/DL 86 MG/DL Calcium Level 8.2 MG/DL 8.4 MG/DL Sodium Level 137 MEQ/L 137 MEQ/L Potassium Level 4.1 MEQ/L 4.2 MEQ/L Chloride Level 106 MEQ/L 106 MEQ/L Carbon Dioxide Level 23.8 MEQ/L 24.1 MEQ/L Anion Gap 7 MEQ/L 7 MEQ/L Estimat Glomerular Filtration Rate 88 ML/MIN 85 ML/MIN Total Protein 6.0 GM/DL Albumin 2.5 GM/DL Alkaline Phosphatase 70 U/L Aspartate Amino Transf (AST/SGOT) 17 U/L Alanine Aminotransferase (ALT/SGPT) 7 U/L Total Bilirubin 0.7 MG/DL Microbiology Date/Time Source Procedure Growth Status 03/12/17 12:00 Blood Peripheral Aerobic Blood Culture - Preliminary NO GROWTH IN 2 DAYS Resulted 03/12/17 12:00 Blood Peripheral Anaerobic Blood Culture - Preliminary NO GROWTH IN 2 DAYS Resulted 03/12/17 12:00 Blood Peripheral Aerobic Blood Culture - Preliminary NO GROWTH IN 2 DAYS Resulted 03/12/17 12:00 Blood Peripheral Anaerobic Blood Culture - Preliminary NO GROWTH IN 2 DAYS Resulted Imaging Last Impressions Chest X-Ray 03/12/17 1145 Signed Impressions: Service Date/Time: Sunday, March 12, 2017 12:07 - CONCLUSION: Elevation of the left hemidiaphragm with trace fluid and minimal parenchymal changes left base; improved in interval. Jv Pierre MD FACR Physical Exam CONSTITUTIONAL/GENERAL: This is a thin undernourishe patient, in no apparent distress. TUBES/LINES/DRAINS: PORT in place R chest no skin changes or tenderness to palpation SKIN: No jaundice, rashes, or lesions. Skin temperature appropriate. Not diaphoretic. CARDIOVASCULAR: Regular rate and rhythm without murmurs, gallops, or rubs. No JVD. Peripheral pulses symmetric. RESPIRATORY/CHEST: Symmetric, unlabored respirations. Clear to auscultation. Breath sounds equal bilaterally. No wheezes, rales, or rhonchi. GASTROINTESTINAL: Abdomen soft, non-tender, nondistended. No hepato-splenomegaly , or palpable masses. No guarding. Bowel sounds present. Well healed med laparotomy scar MUSCULOSKELETAL: Extremities without clubbing, cyanosis, or edema. No joint tenderness or effusion noted. No calf tenderness. No mottling or clubbing. NEUROLOGICAL: Awake and alert. Motor and sensory grossly within normal limits. Follows commands. Clear speech . Moves all extremities. PSYCHIATRIC: pleasant cooperative Assessment & Plan Remarks Metastatic colon ca, sp chemo Neutroepnic fever, resolved on cefepime - clx negative @ 2 days stop cefepime fu blood clx untill final iOK to dc home no home abx dw Swathi Wooten MD Mar 14, 2017 16:37
--- NOTE | 2017-03-14 16:48 | HHI.DS ---
Discharge Summary Admission Date Mar 12, 2017 at 12:59 Discharge Date: Mar 14, 2017 Admitting Diagnosis neutropenic fever. 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 he was diagnosed with rectal cancer in 2009 and has been on palliative chemotherapy; the last chemo session was two weeks ago. he says that he had a blood test done earlier which showed neutropenia. he reports on and off fever for the past few days; highest temperature was 100.8. otherwise he denies any new specific symptoms; no sob, productive cough, headache, chest pain, abdominal pain or urinary complaints. he was sent to ER by for further evaluation. CBC/BMP: 03/14/17 0430 03/14/17 0430 Significant Findings Laboratory Tests Test 03/12/17 12:00 03/12/17 13:45 03/13/17 05:45 03/13/17 15:17 White Blood Count 0.9 TH/MM3 (4.0-11.0) 2.0 TH/MM3 (4.0-11.0) Red Blood Count 3.49 MIL/MM3 (4.50-5.90) 3.59 MIL/MM3 (4.50-5.90) Hemoglobin 9.7 GM/DL (13.0-17.0) 9.9 GM/DL (13.0-17.0) Hematocrit 29.8 % (39.0-51.0) 30.6 % (39.0-51.0) Red Cell Distribution Width 19.8 % (11.6-17.2) 19.8 % (11.6-17.2) Platelet Count 123 TH/MM3 (150-450) 111 TH/MM3 (150-450) Mean Platelet Volume 6.9 FL (7.0-11.0) 6.9 FL (7.0-11.0) Monocytes (%) (Auto) 20.9 % (0.0-8.0) Eosinophils (%) (Auto) 4.9 % (0.0-4.0) Neutrophils # (Auto) 0.4 TH/MM3 (1.8-7.7) Lymphocytes # (Auto) 0.2 TH/MM3 (1.0-4.8) Band Neutrophils % 25 % (0-6) 29 % (0-6) Monocytes % 12 % (0-8) 12 % (0-8) Neutrophils # (Manual) 0.5 TH/MM3 (1.8-7.7) 1.4 TH/MM3 (1.8-7.7) Toxic Granulation 2+ (NORMAL) 1+ (NORMAL) Platelet Estimate LOW (NORMAL) LOW (NORMAL) Platelet Morphology Comment ENLARGED (NORMAL) Ovalocytes 1+ (NORMAL) 1+ (NORMAL) Total Protein 6.3 GM/DL (6.4-8.2) Albumin 2.9 GM/DL (3.4-5.0) Calcium Level 8.4 MG/DL (8.5-10.1) 8.2 MG/DL (8.5-10.1) Estimat Glomerular Filtration Rate 81 ML/MIN (>89) 88 ML/MIN (>89) Urine Bacteria RARE /hpf (NONE) Urine Mucus FEW /lpf (OCC) Metamyelocytes 9 % (0-1) Test 03/14/17 04:30 Red Blood Count 3.47 MIL/MM3 (4.50-5.90) Hemoglobin 9.9 GM/DL (13.0-17.0) Hematocrit 29.7 % (39.0-51.0) Red Cell Distribution Width 20.2 % (11.6-17.2) Platelet Count 108 TH/MM3 (150-450) Neutrophils (%) (Auto) 72.6 % (16.0-70.0) Monocytes (%) (Auto) 14.8 % (0.0-8.0) Lymphocytes # (Auto) 0.5 TH/MM3 (1.0-4.8) Band Neutrophils % 34 % (0-6) Monocytes % 11 % (0-8) Myelocytes 1 % (0-0) Dohle Bodies PRESENT (NONE SEEN) Platelet Estimate LOW (NORMAL) Total Protein 6.0 GM/DL (6.4-8.2) Albumin 2.5 GM/DL (3.4-5.0) Calcium Level 8.4 MG/DL (8.5-10.1) Alanine Aminotransferase (ALT/SGPT) 7 U/L (12-78) Estimat Glomerular Filtration Rate 85 ML/MIN (>89) Hospital Course Mr. Rivas is a 76 year old male. He was admitted secondary to neutropenia and neutropenic fever. Preliminary workup for infection was negative. Patient was covered cefepime. Resolution of neutropenia occurred. No further fevers after admit. Cultures are now negative at 48 hours. Infection is no longer suspected. This may have most likely been reactive fever. Cleared for discharge to home today by oncology and infectious disease. Medically stable and cleared for discharge home today. In the buttocks no longer needed at this point. Pt Condition on Discharge: Stable Discharge Disposition: Discharge Home Discharge Time: <= 30 minutes Discharge Instructions DIET: Follow Instructions for: As Tolerated, No Restrictions Activities you can perform: Regular-No Restrictions Follow up Referrals: Oncology - 2 Weeks PCP Follow-up - 2 Weeks Continued Medications: Amlodipine (Amlodipine) 10 Mg Tab 10 MG PO DAILY for Blood Pressure Management, #30 TAB 0 Refills Kian Lau MD Mar 14, 2017 16:48
== END 2017-03-14 17:55 | disposition home or self-care (01) | DRG 809 ==
LOC: NEPE 10:52 → NEDA 12:59 → N07B 15:24
PROVIDERS: ADMIT Hospitalist; ATTEND Hospitalist
DX: D70.9 Neutropenia, unspecified (principal); C20 Malignant neoplasm of rectum; C78.00 Secondary malignant neoplasm of unspecified lung; C78.7 Secondary malignant neoplasm of liver and intrahepatic bile duct; R50.81 Fever presenting with conditions classified elsewhere; D69.59 Other secondary thrombocytopenia; D64.81 Anemia due to antineoplastic chemotherapy; T45.1X5A Adverse effect of antineoplastic and immunosuppressive drugs, initial encounter; I10 Essential (primary) hypertension; K21.9 Gastro-esophageal reflux disease without esophagitis; Z80.41 Family history of malignant neoplasm of ovary; M19.90 Unspecified osteoarthritis, unspecified site; Z92.3 Personal history of irradiation; Z87.891 Personal history of nicotine dependence; R10.9 Unspecified abdominal pain; R09.82 Postnasal drip; R63.0 Anorexia; J61 Pneumoconiosis due to asbestos and other mineral fibers
CPT/HCPCS: 36591; 71020; 80048; 80053; 81001; 82378; 85007; 85027; 87040; 96365; J0692; J1442; J1642; J7030

== ENCOUNTER 2017-09-12 05:38 | Inpatient (IN) | payer MEDICARE, MEDICAID ==
[2017-09-12] VITALS (12 sets, daily range): BP systolic 106–147; BP diastolic 56–70; PULSE 79–101; RESP 14–22; TEMP 97.2–99; O2SAT 96–100
[~2017-09-12 05:38] MED LIST changes: -1-ME1LIQ PO; +AMLO10TA2 PO; -ASPI81TA82 PO; -DUONI NEB; -NEBUMIS6 INH
[2017-09-12] MEDS ORDERED: SODIUM CHLORID 0.9% 500 ML INJ 500 ML IV ONE (06:15)
--- NOTE | 2017-09-12 06:17 | PD ---
HPI Chief Complaint: GI Complaint Time Seen by Provider: 05:46 Travel History International Travel<30 days: No Contact w/Intl Traveler<30days: No Traveled to known affect area: No History of Present Illness HPI The patient is a 77 year old male who presents to the [facility] emergency department with a history of diarrhea that began on Sunday. The patient reports that he had diarrhea on Sunday and Sunday, however after taking Imodium the symptoms resolved. The patient reports that again in the evening the symptoms recurred. He reports that each day he has had diarrhea 4-5 times per day. He reports that it is light brown, watery. He denies having any blood or mucus in his stool. He denies having any black or tarry stools. The patient's past medical history is complicated by being on chemotherapy. He reports that he had his last chemotherapy on September 03. He reports that his white count prior to chemotherapy was low at 2.2. His oncologist is Dr. Quinonez. He denies having any associated fevers. He denies having any nausea or vomiting. He denies having any abdominal pain other than occasional cramping prior to diarrhea. He denies recently being on any antibiotic. He reports that the last time he was on antibiotic was when he was admitted to the hospital on March 12, 2017. He denies having any recent cough or congestion. He reports that he does have dyspnea on exertion that is been slightly worse with this round of chemotherapy. He denies having any neck pain , chest pain, chest pressure, urinary symptoms, or neurologic symptoms. [facility] Past Medical History Narrative Medical The patient's past medical history is significant for rectal cancer on chemotherapy since January 2010 metastasis to the liver and lung, with recent change to his frequency of chemotherapy from every 3 weeks to every 2 weeks when a new liver lesion was noted. The patient reports a prior history of smoking, however he quit smoking approximately 10 years ago. The patient has a history of asbestosis, acid reflux, hypertension. Arthritis: Yes Asthma: No Blood Disorders: No Anxiety: No Depression: No Heart Rhythm Problems: No Cancer: Yes (COLON, METS TO LIVER AND LUNG) Cardiovascular Problems: Yes High Cholesterol: No Chemotherapy: Yes Chest Pain: No Congestive Heart Failure: No COPD: No Diabetes: No Diminished Hearing: No Endocrine: No Gastrointestinal Disorders: Yes (HX COLON CA) GERD: Yes Hepatitis: No Hiatal Hernia: No Hypertension: Yes Immune Disorder: No Implanted Vascular Access Dvce: Yes (R SC PORT) Medical other: Yes (RADIATION/CHEMOTHERAPY) Musculoskeletal: Yes (ARTHRITIS) Respiratory: Yes (LUNG CANCER, PNEUMONIA 12/2014) Immunizations Current: Yes Radiation Therapy: Yes Sleep Apnea: No Thyroid Disease: No Past Surgical History Narrative Surgical The patient's past surgical history is significant for a partial colon resection , cholecystectomy, [id number] placement, portion of lung resected. Abdominal Surgery: Yes (LEFT PARTIAL LOBE OF LIVER REMOVED, COLON RESECTION) AICD: No Body Medical Devices: RIGHT IMPLANTED PORT Cardiac Surgery: No Ear Surgery: No Endocrine Surgery: No Eye Surgery: No Genitourinary Surgery: No Gynecologic Surgery: No Joint Replacement: No Oral Surgery: Yes Pacemaker: No Thoracic Surgery: Yes (RIGHT IMPLANTED PORT) Other Surgery: Yes Social History Alcohol Use: No Tobacco Use: No Substance Use: No Allergies-Medications (Allergen,Severity, Reaction): Coded Allergies: No Known Allergies (Verified , 10/12/15) Reported Meds & Prescriptions Reported Meds & Active Scripts Active Reported Amlodipine (Amlodipine Besylate) 10 Mg Tab 10 Mg PO DAILY Review of Systems Except as stated in HPI: all other systems reviewed are Neg General / Constitutional: No: Fever Eyes: No: Visual changes HENT: No: Headaches, Rhinorrhea, Congestion Cardiovascular: Positive: Dyspnea on exertion, No: Chest Pain or Discomfort Respiratory: Positive: Shortness of Breath, No: Cough Gastrointestinal: Positive: Diarrhea, Abdominal Pain, Changes in Bowel Habits, No: Nausea, Vomiting, Hematochezia, Indigestion, Loss of Appetite Genitourinary: No: Dysuria Musculoskeletal: No: Pain Skin: No Rash Neurologic: No: Weakness, Focal Abnormalities, Change in Mentation, Slurred Speech, Sensory Disturbance Psychiatric: No: Depression Endocrine: No: Polydipsia Hematologic/Lymphatic: No: Easy Bruising Physical Exam Narrative General: The patient is a well-developed well-nourished male in no acute distress. Head and Neck exam: Head is normocephalic atraumatic. Eyes: EOMI, pupils are equal round and reactive to light. Nose: Midline septum with pink mucous membranes Mouth: Dentition unremarkable. Moist mucus membranes. Posterior oropharynx is not erythematous. No tonsillar hypertrophy. Uvula midline. Airway patent. Neck: No palpable lymphadenopathy. No nuchal rigidity. No thyromegaly. Cardiovascular: Irregularly irregularly with what appears to be occasional PVCs on telemetry without murmurs, gallops, or rubs. No pulse deficit to the extremities on simultaneous auscultation and palpation of his radial artery. Lungs: Clear to auscultation bilaterally. No wheezes, rhonchi, or rales. Abdomen: Soft, with tenderness on palpation of the midepigastric area, no other tenderness on palpation of the other quadrants of the abdomen. No guarding, rebound, or rigidity. Normal bowel sounds are audible. No tenderness on palpation of McBurney's point. Negative Blair sign. Extremities: No clubbing, cyanosis, or edema. 2+ pulses in all 4 extremities. No calf tenderness on palpation. Back: No spinous process tenderness to palpation. No costovertebral angle tenderness to palpation. Neurologic Exam: Grossly nonfocal. Skin Exam: No rash noted. Intact skin that is warm and dry. Data Data Last Documented VS Vital Signs Date Time Temp Pulse Resp B/P (MAP) Pulse Ox O2 Delivery O2 Flow Rate FiO2 09/12/17 06:44 20 09/12/17 06:40 100 Room Air 09/12/17 06:11 97.3 80 Orders Orders Electrocardiogram (09/12/17 06:04) Complete Blood Count With Diff (09/12/17 06:04) Comprehensive Metabolic Panel (09/12/17 06:04) Creatine Kinase (Cpk) (09/12/17 06:04) Ckmb (Isoenzyme) Profile (09/12/17 06:04) Troponin I (09/12/17 06:04) B-Type Natriuretic Peptide (09/12/17 06:04) C-Reactive Protein (Crp) (09/12/17 06:04) Lipase (09/12/17 06:04) Urinalysis - C+S If Indicated (09/12/17 06:04) Magnesium (Mg) (09/12/17 06:04) Enteric Path (Stool) (09/12/17 06:04) C Diff Toxin Pcr (09/12/17 06:04) Chest, Single Ap (09/12/17 06:04) Iv Access Insert/Monitor (09/12/17 06:04) Ecg Monitoring (09/12/17 06:04) Oximetry (09/12/17 06:04) Stool Wbc (Leukocytes) (09/12/17 06:04) Sodium Chlorid 0.9% 500 Ml Inj (Ns 500 M (09/12/17 06:15) MDM Medical Decision Making Medical Screen Exam Complete: Yes Emergency Medical Condition: Yes Medical Record Reviewed: Yes Differential Diagnosis C. difficile colitis, versus parasitic diarrhea, versus viral gastroenteritis, versus bacterial gastroenteritis, versus neutropenia, versus electrolyte derangements, versus dehydration Narrative Course During the course of the patient's emergency department visit, the patient's history, examination, and differential diagnosis were reviewed with the patient. The patient was placed on a radiation monitor with oximetry and frequent blood pressure monitoring. The patient had IV access obtained and blood work sent for analysis. The patient had a EKG done on arrival that shows a sinus rhythm at 76 with occasional ventricular premature complexes. No acute ST segment elevation. QRS duration is 85 ms, QTC 400 ms. Stool studies have been ordered. The patient was initially provided normal saline at 500 mL bolus 1. Radiology studies were reviewed and remarkable for chest x-ray that shows a reduction in size of the left pleural effusion was previously seen with slight effusion remaining and possible left lung base consolidation. The patient's laboratory studies are pending at the conclusion of my shift. The patient's case will be checked out to the oncoming emergency physician to disposition the patient based on the conclusion of his workup. Sepsis Criteria SIRS Criteria (2 or more): Heart rate over 90 Diagnosis Primary Impression: Diarrhea Qualified Codes: R19.7 - Diarrhea, unspecified aHli Pink MD September 12, 2017 06:17
--- NOTE | 2017-09-12 06:45 | RADRPT ---
EXAM DATE: 09/12/2017 6:26 AM EDT AGE/SEX: 77 years / Male INDICATIONS: Shortness of breath. Chemo on 09/03. CLINICAL DATA: This is the patient's initial encounter. Patient reports that signs and symptoms have been present for 1 day and indicates a pain score of 0/10. MEDICAL/SURGICAL HISTORY: Hypertension. Carcinoma, colon. Carcinoma, lung. . Infusaport. [place] [facility] [place]. . FINDINGS: Left lung base opacity is present may be due to a combination of consolidation and or pleural effusi on. Overall there is reduction in size of the left pleural effusion. There is no pneumothorax. Right IJ [id number] is again seen. CONCLUSION: Reduction in size of the left pleural effusion with slight effusion remaining and possibl e left lung base consolidation. Electronically signed by: Irvin Davila MD 09/12/2017 6:44 AM EDT
[2017-09-12 06:59] LABS: AUTOMATED NEUTROPHIL # 0.8 TH/MM3 (1.8-7.7); BASOPHIL % 0.7 % (0.0-2.0); EOSINOPHIL # 0.1 TH/MM3 (0-0.4); EOSINOPHIL % 3.4 % (0.0-4.0); HEMATOCRIT 29.6 % (39.0-51.0); HEMOGLOBIN 9.9 GM/DL (13.0-17.0); LYMPH % 32.2 % (9.0-44.0); LYMPHOCYTE # 0.5 TH/MM3 (1.0-4.8); MEAN CELL VOLUME 85.2 FL (80.0-100.0); MEAN CORPUSCULAR HEMOGLOBIN 28.6 PG (27.0-34.0); MEAN CORPUSCULAR HGB CONC 33.5 % (32.0-36.0); MEAN PLATELET VOLUME 7.4 FL (7.0-11.0); MONO % 10.1 % (0.0-8.0); MONOCYTE # 0.2 TH/MM3 (0-0.9); NEUT % 53.6 % (16.0-70.0); PLATELET COUNT 84 TH/MM3 (150-450); RED BLOOD COUNT 3.48 MIL/MM3 (4.50-5.90); RED CELL DISTRIBUTION WIDTH 18.8 % (11.6-17.2); WHITE BLOOD COUNT 1.5 TH/MM3 (4.0-11.0)
[2017-09-12 07:19] LABS: BILIRUBIN, URINE NEG (NEG); BLOOD, URINE NEG (NEG); GLUCOSE,URINE NEG (NEG); KETONE, URINE NEG (NEG); NITRITE,URINE NEG (NEG); PH, URINE 6.5 (5.0-8.5); URINE COLOR LIGHT-YELLOW (YELLW/STRAW); URINE LEUKOCYTE ESTERASE NEG (NEG)
[2017-09-12 07:20] LABS: ALBUMIN 3.3 GM/DL (3.4-5.0); AST (GOT) 18 U/L (15-37); BICARBONATE 23.2 MEQ/L (21.0-32.0); BLOOD UREA NITROGEN 20 MG/DL (7-18); CALCIUM 8.5 MG/DL (8.5-10.1); CHLORIDE 106 MEQ/L (98-107); CREATININE 0.91 MG/DL (0.60-1.30); GLOMERULAR FILTRATION RATE 81 ML/MIN (>89); GLUCOSE,RANDOM 101 MG/DL (74-106); SODIUM (NA) 137 MEQ/L (136-145)
[2017-09-12 07:21] LABS: ALT (GPT) 14 U/L (12-78); C-REACTIVE PROTEIN 0.41 MG/DL (0.00-0.30)
[2017-09-12 07:23] LABS: ALKALINE PHOSPHATASE 70 U/L (45-117); TOTAL BILIRUBIN ADULT 0.6 MG/DL (0.2-1.0); TOTAL PROTEIN 6.7 GM/DL (6.4-8.2); TROPONIN I LESS THAN 0.02 NG/ML (0.02-0.05)
--- NOTE | 2017-09-12 07:33 | PD ---
Physical Exam Narrative GENERAL: SKIN: Warm and dry. HEAD: Atraumatic. Normocephalic. EYES: Pupils equal and round. No scleral icterus. No injection or drainage. ENT: No nasal bleeding or discharge. Mucous membranes pink and moist. NECK: Trachea midline. No JVD. CARDIOVASCULAR: Regular rate and irregular rhythm. RESPIRATORY: No accessory muscle use. Clear to auscultation. Breath sounds equal bilaterally. GASTROINTESTINAL: Abdomen soft, non-tender, nondistended. Some hyperactive bowel sounds but without any rigidity/rebound/guarding. MUSCULOSKELETAL: Extremities without clubbing, cyanosis, or edema. No obvious deformities. NEUROLOGICAL: Awake and alert. No obvious cranial nerve deficits. Motor grossly within normal limits. Five out of 5 muscle strength in the arms and legs. Normal speech. PSYCHIATRIC: Appropriate mood and affect; insight and judgment normal. Data Data Last Documented VS Orders Orders Electrocardiogram (09/12/17 06:04) Complete Blood Count With Diff (09/12/17 06:04) Comprehensive Metabolic Panel (09/12/17 06:04) Creatine Kinase (Cpk) (09/12/17 06:04) Ckmb (Isoenzyme) Profile (09/12/17 06:04) Troponin I (09/12/17 06:04) B-Type Natriuretic Peptide (09/12/17 06:04) C-Reactive Protein (Crp) (09/12/17 06:04) Lipase (09/12/17 06:04) Urinalysis - C+S If Indicated (09/12/17 06:04) Magnesium (Mg) (09/12/17 06:04) Enteric Path (Stool) (09/12/17 06:04) C Diff Toxin Pcr (09/12/17 06:04) Chest, Single Ap (09/12/17 06:04) Iv Access Insert/Monitor (09/12/17 06:04) Ecg Monitoring (09/12/17 06:04) Oximetry (09/12/17 06:04) Stool Wbc (Leukocytes) (09/12/17 06:04) Sodium Chlorid 0.9% 500 Ml Inj (Ns 500 M (09/12/17 06:15) Blood Culture (09/12/17 06:50) Lactic Acid Sepsis Protocol (09/12/17 06:50) Cefepime Inj (Maxipime Inj) (09/12/17 08:00) Metronidazole 500 Mg Inj (Flagyl 500 Mg (09/12/17 08:00) Admit Order (Ed Use Only) (09/12/17 08:37) Comprehensive Metabolic Panel (09/13/17 06:00) Free Thyroxine (T4) (09/13/17 06:00) Hemoglobin (Hgb) A1c (09/13/17 06:00) Magnesium (Mg) (09/13/17 06:00) Phosphorus (Po4) (09/13/17 06:00) Thyroid Stimulating Hormone (09/13/17 06:00) Complete Blood Count With Diff (09/13/17 06:00) Amlodipine (Norvasc) (09/12/17 09:00) Labs Laboratory Tests Test 09/12/17 06:30 09/12/17 06:54 09/12/17 07:00 White Blood Count 1.5 TH/MM3 Red Blood Count 3.48 MIL/MM3 Hemoglobin 9.9 GM/DL Hematocrit 29.6 % Mean Corpuscular Volume 85.2 FL Mean Corpuscular Hemoglobin 28.6 PG Mean Corpuscular Hemoglobin Concent 33.5 % Red Cell Distribution Width 18.8 % Platelet Count 84 TH/MM3 Mean Platelet Volume 7.4 FL Neutrophils (%) (Auto) 53.6 % Lymphocytes (%) (Auto) 32.2 % Monocytes (%) (Auto) 10.1 % Eosinophils (%) (Auto) 3.4 % Basophils (%) (Auto) 0.7 % Neutrophils # (Auto) 0.8 TH/MM3 Lymphocytes # (Auto) 0.5 TH/MM3 Monocytes # (Auto) 0.2 TH/MM3 Eosinophils # (Auto) 0.1 TH/MM3 Basophils # (Auto) 0.0 TH/MM3 CBC Comment AUTO DIFF Differential Total Cells Counted 100 Neutrophils % (Manual) 40 % Band Neutrophils % 15 % Lymphocytes % 31 % Monocytes % 10 % Eosinophils % 1 % Basophils % 2 % Neutrophils # (Manual) 0.8 TH/MM3 Myelocytes 1 % Differential Comment FINAL DIFF MANUAL Platelet Estimate LOW Platelet Morphology Comment NORMAL Ovalocytes 1+ Blood Urea Nitrogen 20 MG/DL Creatinine 0.91 MG/DL Random Glucose 101 MG/DL Total Protein 6.7 GM/DL Albumin 3.3 GM/DL Calcium Level 8.5 MG/DL Magnesium Level 2.0 MG/DL Alkaline Phosphatase 70 U/L Aspartate Amino Transf (AST/SGOT) 18 U/L Alanine Aminotransferase (ALT/SGPT) 14 U/L Total Bilirubin 0.6 MG/DL Sodium Level 137 MEQ/L Potassium Level 3.7 MEQ/L Chloride Level 106 MEQ/L Carbon Dioxide Level 23.2 MEQ/L Anion Gap 8 MEQ/L Estimat Glomerular Filtration Rate 81 ML/MIN Total Creatine Kinase 35 U/L Troponin I LESS THAN 0.02 NG/ML C-Reactive Protein 0.41 MG/DL B-Type Natriuretic Peptide 63 PG/ML Lipase 75 U/L Lactic Acid Level 0.8 mmol/L Urine Color LIGHT-YELLOW Urine Turbidity CLEAR Urine pH 6.5 Urine Specific Hazel 1.003 Urine Protein NEG mg/dL Urine Glucose (UA) NEG mg/dL Urine Ketones NEG mg/dL Urine Occult Blood NEG Urine Nitrite NEG Urine Bilirubin NEG Urine Urobilinogen LESS THAN 2.0 MG/DL Urine Leukocyte Esterase NEG Urine RBC LESS THAN 1 /hpf Microscopic Urinalysis Comment CULT NOT INDICATED MDM Medical Record Reviewed: Yes Supervised Visit with [place]: No Interpretation(s) Patient's pulse ox shows excellent Pleth wave, with pulse oximetry readings between 98 and 100 on room air which is within normal limits and does not show any evidence of hypoxemia. Patient's respiratory rate since 540 has been between 18 and down to 14 as a respiratory rate. Not consistent with any tachypnea Patient continues to be afebrile And although initial pulse was 93 repeat pulse rate has been in the 80s with normal blood pressure Narrative Course CBC shows leukopenia 1.5, anemia of 9.9/29.6, and relative thrombocytopenia of 84,000 No left shift noted on differential Electrolytes are all within normal limits, normal kidney, normal liver, normal pancreatic functions. First set of cardiac enzymes negative As of 0 730 pending lactic acid, beta natruretic peptide, UA results Chest x-ray read by radiologist as reduction in size of the left pleural effusion with a slight effusion remaining, and possible left lung base consolidation. At this point once all results were reviewed, I contacted heme/onc and discussed admission for the patient which was agreed upon Diagnosis Primary Impression: Diarrhea Qualified Codes: R19.7 - Diarrhea, unspecified Additional Impressions: Pancytopenia secondary to chemotherapy Left lung consolidation Scripts Amoxicillin-Clavulanate (Augmentin) 500-125 mg Tab 500 MG PO Q8H for Infection, #30 TAB 0 Refills Prov: Jv Felton DO 09/14/17 Lactobacillus Acidophilus (Lactinex) 1 Chew 1 TAB CHEW TID for Nutritional Supplement, #45 TAB 0 Refills Prov: Jv Felton DO 09/14/17 Metronidazole (Flagyl) 500 Mg Tab 500 MG PO TID for Infection, #30 TAB 0 Refills Prov: Jv Felton DO 09/14/17 Amlodipine (Amlodipine) 10 Mg Tab 10 MG PO DAILY for Blood Pressure Management, #30 TAB 0 Refills Prov: Jv Felton DO 09/14/17 Arnie Aguilar MD September 12, 2017 07:33
[2017-09-12 07:49] LABS: BANDS 15 % (0-6); BASOPHILS 2 % (0-2); LYMPHOCYTES 31 % (9-44); MONOCYTES 10 % (0-8); MYELOCYTES 1 % (0-0); NEUTROPHIL # MANUAL DIFF 0.8 TH/MM3 (1.8-7.7); OVALOCYTES 1+ (NORMAL); POLYS (SEG NEUTROPHILS) 40 % (16-70)
[2017-09-12] MEDS ORDERED: metroNIDAZOLE 500 MG INJ 100 ML IV ONE (08:00)
[2017-09-12] MEDS ORDERED: CEFEPIME INJ 1,000 MG in SODIUM CHLORIDE 0.9% INJ 100 ML IV ONE (08:00)
[2017-09-12] MEDS ORDERED: METOCLOPRAMIDE HCL 10 MG/2 ML VIAL IV PUSH PRN (08:45)
[2017-09-12] MEDS ORDERED: ZOLPIDEM TARTRATE 5 MG TAB PO PRN (08:45)
[2017-09-12] MEDS ORDERED: NALOXONE HCL 0.4 MG/ML AMP IV PUSH PRN (08:45)
[2017-09-12] MEDS ORDERED: oxyCODONE/ACETAMINOPHEN 5 MG/325 MG TAB PO PRN (08:45)
[2017-09-12] MEDS ORDERED: SODIUM CHLORIDE 0.9% FLUSH 10 ML FLUSH IV FLUSH PRN (08:45)
[2017-09-12] MEDS ORDERED: oxyCODONE/ACETAMINOPHEN 10 MG/325 MG TAB PO PRN (08:45)
[2017-09-12] MEDS ORDERED: LACTULOSE SYRUP 20 GM/30 ML CUP PO PRN (08:45)
[2017-09-12] MEDS ORDERED: MAGNESIUM HYDROXIDE SUSP 30 ML CUP PO PRN (08:45)
[2017-09-12] MEDS ORDERED: SENNOSIDES 8.6 MG TAB PO PRN (08:45)
[2017-09-12] MEDS ORDERED: BISACODYL 10 MG SUPP RECTAL PRN (08:45)
[2017-09-12] MEDS ORDERED: ACETAMINOPHEN 325 MG TAB PO PRN ×2 (08:45)
[2017-09-12] MEDS ORDERED: ONDANSETRON ODT 4 MG TAB PO PRN (09:00)
[2017-09-12] MEDS: SODIUM CHLORIDE 0.9% FLUSH 10 ML FLUSH IV FLUSH SCH ×2 (09:00→20:17)
[2017-09-12] MEDS ORDERED: MORPHINE SULFATE 4 MG/ML INJ IV PUSH PRN ×3 (09:15)
[2017-09-12] MEDS: DOCUSATE SODIUM 50 MG/SENNA 8.6 MG TAB PO SCH ×2 (09:30→20:15)
[2017-09-12] MEDS: SODIUM CHLOR 0.9% 1000 ML INJ 1,000 ML IV SCH ×2 (09:54→19:00)
--- NOTE | 2017-09-12 11:17 | HHI.HP ---
HPI Service [facility] Hospitalists Primary Care Physician Andrew Quinonez MD Admission Diagnosis DIARRHEA, NEUTROPENIA Diagnoses: Chief Complaint: GI COMPLAINT Travel History International Travel<30 Days: No Contact w/Intl Traveler <30 Da: No Traveled to Known Affected Are: No History of Present Illness Patient is a 77-year-old male who presented to the emergency department at [facility] this morning with diarrhea that has been ongoing on and off since Sunday. Patient states that he has had diarrhea on Sunday and Sunday then took some Imodium symptoms resolved and he reports again this last evening he had some more diarrhea. And had diarrhea 4-5 times per day. He states it is a light brown and is watery in nature. He denies any blood or mucus. Denies any black or tarry stools has a history of chemotherapy. Most recently on September 03. He sees Dr. QUINONEZ his oncologist, and decided to come to the hospital since he was still having the diarrhea. Denies any recent antibiotics except last March 12, 2017 sometimes get short of breath more so with chemo therapy. Patient did not want to get worse and therefore came to the emergency department for evaluation. Has history of colon cancer with metastasis to the liver and lung with history of a resection of the colon cancer and history of liver resection and history of a lung biopsy Patient also states that he had previously been diagnosed with asbestosis and acid reflux and hypertension Review of Systems Constitutional: COMPLAINS OF: Fatigue, DENIES: Diaphoretic episodes, Fever, Weight gain, Weight loss, Chills, Dizziness, Change in appetite, Night Sweats Endocrine: DENIES: Heat/cold intolerance, Polydipsia, Polyuria, Polyphagia Eyes: DENIES: Blurred vision, Diplopia, Eye inflammation, Eye pain, Vision loss , Photosensitivity, Double Vision Ears, nose, mouth, throat: DENIES: Tinnitus, Hearing loss, Vertigo, Nasal discharge, Oral lesions, Throat pain, Hoarseness, Ear Pain, Running Nose, Epistaxis, Sinus Pain, Toothache, Odynophagia Respiratory: COMPLAINS OF: Shortness of breath, DENIES: Apneas, Cough, Snoring , Wheezing, Hemoptysis, Sputum production Cardiovascular: COMPLAINS OF: Dyspnea on Exertion, DENIES: Chest pain, Palpitations, Syncope, PND, Lower Extremity Edema, Orthopnea, Claudication Gastrointestinal: COMPLAINS OF: Diarrhea, DENIES: Abdominal pain, Black stools , Bloody stools, Constipation, Nausea, Vomiting, Difficulty Swallowing, Anorexia Genitourinary: DENIES: Sexual dysfunction, Urinary frequency, Urinary incontinence Musculoskeletal: DENIES: Joint pain, Muscle aches, Stiffness, Joint Swelling, Back pain, Neck pain Integumentary: DENIES: Abnormal pigmentation, Nail changes, Pruritus, Rash Hematologic/lymphatic: DENIES: Bruising, Lymphadenopathy Immunologic/allergic: DENIES: Eczema Neurologic: DENIES: Abnormal gait, Headache, Localized weakness, Paresthesias, Seizures, Speech Problems, Tremor, Poor Balance Psychiatric: DENIES: Anxiety, Confusion, Mood changes, Depression, Hallucinations, Agitation, Suicidal Ideation, Homicidal Ideation, Delusions Except as stated in HPI: all other systems reviewed are Neg Past Family Social History Past Medical History Colon cancer with metastasis to the lung and liver History of colon cancer resection and liver resection and lung surgery History of rectal cancer with chemotherapy History of tobacco but quit History of asbestosis GERD Hypertension Osteoarthritis Recent ongoing chemotherapy History of right subclavian port History of radiation and chemotherapy History of pneumonia in 2014 Past Surgical History Partial colon resection Cholecystectomy [id number] placement Lung resection Left partial lobectomy of liver Reported Medications Reported Meds & Active Scripts Active Reported Amlodipine (Amlodipine Besylate) 10 Mg Tab 10 Mg PO DAILY Allergies: Coded Allergies: No Known Allergies (Verified , 10/12/15) Active Ordered Medications Current Medications Sodium Chloride 500 ml @ 500 mls/hr BOLUS ONCE IV Last administered on at 06:46; Start 09/12/17 at 06:15; Stop 09/12/17 at 07:14; Status DC Cefepime HCl 1000 mg/Sodium Chloride 100 ml @ 200 mls/hr ONCE ONCE IV Last administered on 09/12/17at 08:04; Start 09/12/17 at 08:00; Stop 09/12/17 at 08:29 ; Status DC Metronidazole 100 ml @ 100 mls/hr ONCE ONCE IV Last administered on at 08:34; Start 09/12/17 at 08:00; Stop 09/12/17 at 09:04; Status DC Amlodipine Besylate (Norvasc) 10 mg DAILY PO Last administered on 09/12/17at 09: 53; Start 09/12/17 at 09:00 Sodium Chloride 1,000 ml @ 100 mls/hr Q10H IV Last administered on 09/12/17at 09:54; Start 09/12/17 at 09:00 Sodium Chloride (NS Flush) 2 ml UNSCH PRN IV FLUSH FLUSH AFTER USING IV ACCESS ; Start 09/12/17 at 08:45 Sodium Chloride (NS Flush) 2 ml BID IV FLUSH ; Start 09/12/17 at 09:00 Acetaminophen (Tylenol) 650 mg Q4H PRN PO TEMP > 100.4; Start 09/12/17 at 08:45 Ondansetron HCl (Zofran Odt) 4 mg Q6H PRN PO NAUSEA OR VOMITING; Start at 09:00 Metoclopramide HCl (Reglan Inj) 5 mg Q6H PRN IV PUSH NAUSEA OR VOMITING; Start 09/12/17 at 08:45 Zolpidem Tartrate (Ambien) 5 mg HS PRN PO INSOMNIA; Start 09/12/17 at 08:45 Heparin Sodium (Porcine) (Heparin Inj) 5,000 units Q8H SQ ; Start 09/12/17 at 10 :00 Acetaminophen (Tylenol) 650 mg Q6H PRN PO PAIN SCALE 1 TO 2; Start 09/12/17 at 08:45 Oxycodone/ Acetaminophen (Percocet 5-325 Mg) 1 tab Q6H PRN PO PAIN SCALE 3 TO 5; Start 09/12/17 at 08:45 Oxycodone/ Acetaminophen (Percocet 10-325 Mg) 1 tab Q6H PRN PO PAIN SCALE 6 TO 10; Start 09/12/17 at 08:45 Morphine Sulfate (Morphine Inj) 2 mg Q3H PRN IV PUSH Pain 3-5; if unable to take PO; Start 09/12/17 at 09:15 Morphine Sulfate (Morphine Inj) 4 mg Q3H PRN IV PUSH Pain 6-10;if unable to take PO; Start 09/12/17 at 09:15 Morphine Sulfate (Morphine Inj) 4 mg Q3H PRN IV PUSH BREAKTHROUGH PAIN; Start 09/12/17 at 09:15 Naloxone HCl (Narcan Inj) 0.4 mg UNSCH PRN IV PUSH SEE LABEL COMMENTS; Start at 08:45 Senna/Docusate Sodium (Tayla-Colace) 1 tab BID PO ; Start 09/12/17 at 09:30 Magnesium Hydroxide (Milk Of Magnesia Liq) 30 ml Q12H PRN PO Mild constipation ; Start 09/12/17 at 08:45 Sennosides (Senokot) 17.2 mg Q12H PRN PO Moderate constipation; Start 09/12/17 at 08:45 Bisacodyl (Dulcolax Supp) 10 mg DAILY PRN RECTAL SEVERE CONSITIPATION; Start at 08:45 Lactulose (Lactulose Liq) 30 ml DAILY PRN PO SEVERE CONSITIPATION; Start at 08:45 Cefepime HCl 2000 mg/Sodium Chloride 100 ml @ 200 mls/hr Q8H IV ; Start at 16:00 Metronidazole 100 ml @ 100 mls/hr Q8H IV ; Start 09/12/17 at 17:00 Family History History of tobacco Hypertension Social History History of tobacco quit 10 years ago Denies any illicits Denies any alcohol abuse Physical Exam Vital Signs Vital Signs Date Time Temp Pulse Resp B/P (MAP) Pulse Ox O2 Delivery O2 Flow Rate FiO2 09/12/17 09:53 79 18 145/67 (93) 100 Room Air 09/12/17 08:05 85 18 130/64 (86) 100 Room Air 09/12/17 06:44 20 09/12/17 06:40 147/70 (95) 100 Room Air 09/12/17 06:11 97.3 80 14 147/70 (95) 100 Room Air 09/12/17 05:40 97.2 93 18 122/58 (79) 99 Physical Exam GENERAL: This is a well-nourished, well-developed patient, in no apparent distress. SKIN: No rashes, ecchymoses or lesions. Cool and dry. HEAD: Atraumatic. Normocephalic. No temporal or scalp tenderness. EYES: Pupils equal round and reactive. Extraocular motions intact. No scleral icterus. No injection or drainage. ENT: Nose without bleeding, purulent drainage or septal hematoma. Throat without erythema, tonsillar hypertrophy or exudate. Uvula midline. Airway patent. NECK: Trachea midline. No JVD or lymphadenopathy. Supple, nontender, no meningeal signs. CARDIOVASCULAR: Regular rate and rhythm without murmurs, gallops, or rubs. S1- S2 no S3 or S4 RESPIRATORY: Clear to auscultation. Breath sounds equal bilaterally. No wheezes , rales, or rhonchi. GASTROINTESTINAL: Abdomen soft, non-tender, nondistended. No hepato-splenomegaly , or palpable masses. No guarding. MUSCULOSKELETAL: Extremities without clubbing, cyanosis, or edema. No joint tenderness, effusion, or edema noted. No calf tenderness. Negative Homans sign bilaterally. NEUROLOGICAL: Awake and alert. Cranial nerves II through XII intact. Motor and sensory grossly within normal limits. Five out of 5 muscle strength in all muscle groups. Normal speech. Insight and judgment is good Mood and behavior is appropriate Laboratory Laboratory Tests Test 09/12/17 06:30 09/12/17 06:54 09/12/17 07:00 White Blood Count 1.5 Red Blood Count 3.48 Hemoglobin 9.9 Hematocrit 29.6 Mean Corpuscular Volume 85.2 Mean Corpuscular Hemoglobin 28.6 Mean Corpuscular Hemoglobin Concent 33.5 Red Cell Distribution Width 18.8 Platelet Count 84 Mean Platelet Volume 7.4 Neutrophils (%) (Auto) 53.6 Lymphocytes (%) (Auto) 32.2 Monocytes (%) (Auto) 10.1 Eosinophils (%) (Auto) 3.4 Basophils (%) (Auto) 0.7 Neutrophils # (Auto) 0.8 Lymphocytes # (Auto) 0.5 Monocytes # (Auto) 0.2 Eosinophils # (Auto) 0.1 Basophils # (Auto) 0.0 CBC Comment AUTO DIFF Differential Total Cells Counted 100 Neutrophils % (Manual) 40 Band Neutrophils % 15 Lymphocytes % 31 Monocytes % 10 Eosinophils % 1 Basophils % 2 Neutrophils # (Manual) 0.8 Myelocytes 1 Differential Comment FINAL DIFF MANUAL Platelet Estimate LOW Platelet Morphology Comment NORMAL Ovalocytes 1+ Blood Urea Nitrogen 20 Creatinine 0.91 Random Glucose 101 Total Protein 6.7 Albumin 3.3 Calcium Level 8.5 Magnesium Level 2.0 Alkaline Phosphatase 70 Aspartate Amino Transf (AST/SGOT) 18 Alanine Aminotransferase (ALT/SGPT) 14 Total Bilirubin 0.6 Sodium Level 137 Potassium Level 3.7 Chloride Level 106 Carbon Dioxide Level 23.2 Anion Gap 8 Estimat Glomerular Filtration Rate 81 Total Creatine Kinase 35 Troponin I LESS THAN 0.02 C-Reactive Protein 0.41 B-Type Natriuretic Peptide 63 Lipase 75 Lactic Acid Level 0.8 Urine Color LIGHT-YELLOW Urine Turbidity CLEAR Urine pH 6.5 Urine Specific [place] 1.003 Urine Protein NEG Urine Glucose (UA) NEG Urine Ketones NEG Urine Occult Blood NEG Urine Nitrite NEG Urine Bilirubin NEG Urine Urobilinogen LESS THAN 2.0 Urine Leukocyte Esterase NEG Urine RBC LESS THAN 1 Microscopic Urinalysis Comment CULT NOT INDICATED Date/Time Source Procedure Growth Status 09/12/17 06:55 Blood Peripheral Aerobic Blood Culture Pending Received 09/12/17 06:55 Blood Peripheral Anaerobic Blood Culture Pending Received Result Diagram: 09/12/1730 09/12/1730 Imaging Last Impressions Chest X-Ray 09/12/17 0604 Signed Impressions: CONCLUSION: Reduction in size of the left pleural effusion with slight effusion remaining and possible left lung base consolidation. Caprini VTE Risk Assessment Caprini VTE Risk Assessment: Mod/High Risk (score >= 2) Caprini Risk Assessment Model Point Value = 1 Point Value = 2 Point Value = 3 Point Value = 5 Age 41-60 Minor surgery BMI > 25 kg/m2 Swollen legs Varicose veins or History of unexplained or recurrent spontaneous Oral contraceptives or hormone replacement Sepsis (< 1 month) Serious lung disease, including pneumonia (< 1 month) Abnormal pulmonary function Acute myocardial infarction Congestive heart failure (< 1 month) History of inflammatory bowel disease Medical patient at bed rest Age 61-74 Arthroscopic surgery Major open surgery (> 45 min) Laparoscopic surgery (> 45 min) Malignancy Confined to bed (> 72 hours) Immobilizing plaster cast Central venous access Age >= 75 History of VTE Family history of VTE Factor V Leiden Prothrombin [id number] Lupus anticoagulant Anticardiolipin antibodies Elevated serum homocysteine Heparin-induced thrombocytopenia Other congenital or acquired thrombophilia Stroke (< 1 month) Elective arthroplasty Hip, pelvis, or leg fracture Acute spinal cord injury (< 1 month) Prophylaxis Regimen Total Risk Factor Score Risk Level Prophylaxis Regimen 0-1 Low Early ambulation 2 Moderate Order ONE of the following: *Sequential Compression Device (SCD) *Heparin 5000 units SQ BID 3-4 Higher Order ONE of the following medications: *Heparin 5000 units SQ TID *Enoxaparin/Lovenox 40 mg SQ daily (WT < 150 kg, CrCl > 30 mL/min) *Enoxaparin/Lovenox 30 mg SQ daily (WT < 150 kg, CrCl > 10-29 mL/min) *Enoxaparin/Lovenox 30 mg SQ BID (WT < 150 kg, CrCl > 30 mL/min) AND/OR *Sequential Compression Device (SCD) 5 or more Highest Order ONE of the following medications: *Heparin 5000 units SQ TID (Preferred with Epidurals) *Enoxaparin/Lovenox 40 mg SQ daily (WT < 150 kg, CrCl > 30 mL/min) *Enoxaparin/Lovenox 30 mg SQ daily (WT < 150 kg, CrCl > 10-29 mL/min) *Enoxaparin/Lovenox 30 mg SQ BID (WT < 150 kg, CrCl > 30 mL/min) AND *Sequential Compression Device (SCD) Assessment and Plan Assessment and Plan Diarrhea unspecified had recently had chemotherapy for his colon/rectal cancer We will continue on fluids Continue on cefepime and Flagyl Continue on fluids Pain control as needed will consult Oncology Suspected viral gastroenteritis versus other or secondary to chemotherapy Hypertension resume home medications Send stool studies Leukopenia due to chemotherapy Anemia due to chemotherapy Thrombocytopenia due to chemotherapy DVT prophylaxis with heparin GERD continue on home medications Asbestos continue on duo nebs as needed A.m. labs Consult oncology Continue with physical therapy and Occupational Therapy Code Status Full code Discussed Condition With Discussed with RN and patient and family and emergency room physician Jv Felton DO September 12, 2017 11:17
[2017-09-12] MEDS: HEPARIN SODIUM - SQ 10,000 UNITS/ML VIAL SQ SCH ×3 (11:19→23:56)
--- NOTE | 2017-09-12 13:58 | EKG ---
Date Performed: 09/12/2017 Time Performed: 06:20:10 PTAGE: 77 years EKG: Sinus rhythm WITH OCCASIONAL VENTRICULAR PREMATURE COMPLEXES BORDERLINE ECG NO PREVIOUS TRACING DOCTOR: Munir John Interpretating Date/Time 09/12/2017 13:56:11
[2017-09-12] MEDS: CEFEPIME INJ 2,000 MG in SODIUM CHLORIDE 0.9% INJ 100 ML IV SCH (16:26)
[2017-09-12 19:01] LABS: TROPONIN I LESS THAN 0.02 NG/ML (0.02-0.05)
[2017-09-12] MEDS: metroNIDAZOLE 500 MG INJ 100 ML IV SCH (19:37)
[2017-09-12 22:38] LABS: TROPONIN I LESS THAN 0.02 NG/ML (0.02-0.05)
[2017-09-13] VITALS (9 sets, daily range): BP systolic 79–128; BP diastolic 48–62; PULSE 85–117; RESP 16–18; TEMP 97.9–99.6; O2SAT 94–96
[2017-09-13] MEDS: CEFEPIME INJ 2,000 MG in SODIUM CHLORIDE 0.9% INJ 100 ML IV SCH ×3 (00:02→16:45)
[2017-09-13] MEDS: metroNIDAZOLE 500 MG INJ 100 ML IV SCH ×3 (00:02→17:45)
--- NOTE | 2017-09-13 00:31 | MB ---
cc: Shaan Quinonez MD DATE: 09/12/2017 REASON FOR CONSULTATION: Consult requested by hospitalist for evaluation and management of metastatic colorectal cancer in a patient who is admitted for severe diarrhea. HISTORY OF PRESENT ILLNESS: Fox is a pleasant 77-year-old male. He was diagnosed with rectal cancer with liver and lung metastasis in 01/2010. He had been on chemotherapy since then. He also had surgery with low anterior resection, liver resection and cholecystectomy in 2010. He also had received radiation to his lung mets. The patient had a good response from the treatment. He is currently on Avastin and FOLFIRI chemotherapy since 10/2015. His last chemotherapy was on 09/03/2017, last week, Sunday. The patient says that he was feeling fine after the chemotherapy, but over the weekend, he became ill. He started having diarrhea. He was taking Imodium, which did help. However, yesterday, early in the morning, he had profuse intractable watery diarrhea. That really scares him and he decided to come to the emergency room. In the emergency room, the patient had a workup. The CBC showed neutropenia with bandemia. ER physician has contacted me. With his severe neutropenia with an absolute neutrophil count of 800 and bandemia associated with severe diarrhea, it was recommended that the patient should be admitted to the hospital for possible infectious diarrhea. He was started on empiric cefepime and Flagyl. He is on the oncology floor and I have been asked to see him for further evaluation. The patient states that his diarrhea has improved since he is in the hospital. He had very profuse multiple episodes of diarrhea early yesterday morning. Since he is in the hospital, he has not had a bowel movement. He has been complaining of diffuse abdominal cramping and discomfort. He denies any nausea, vomiting. His appetite is okay. He is not losing weight. The rest of the review of systems is negative. PAST MEDICAL HISTORY: Asbestosis, gastroesophageal reflux disease, hypertension, rectal cancer with liver and lung metastasis. PAST SURGICAL HISTORY: Colon resection, cholecystectomy, Infusaport placement, lung resection. ALLERGIES: NONE. MEDICATIONS PRIOR TO COMING TO THE HOSPITAL: Amlodipine, Imodium and omeprazole. FAMILY HISTORY: None for malignancy. SOCIAL HISTORY: He is . He stopped smoking 18 years ago, does not drink alcohol. PHYSICAL EXAMINATION: GENERAL: This is a well-developed, well-nourished white male, in no apparent distress. VITAL SIGNS: Temperature 97.3, heart rate is 80, blood pressure 140/70. ABDOMEN: Diffuse tenderness noted. HEAD, EYES, EARS, NOSE, AND THROAT: Pupils equal, round, reactive to light and accommodation, extraocular movements intact. Anicteric. No oral lesions noted. No thrush noted. NECK: Supple. No JVD. No masses noted. LUNGS: Clear. No wheezing, rhonchi, or rales. HEART: Regular rate and rhythm. No murmur heard. ABDOMEN: Soft and nontender. No hepatosplenomegaly. No abnormal bowel sounds. No guarding or rigidity noted. EXTREMITIES: No pedal edema. No cyanosis, no clubbing. NEUROLOGIC: Awake, alert, oriented x 3. Sensory and motor seem to be intact. SKIN: No bruises or petechiae noted. LYMPH NODES: No cervical, supraclavicular, or axillary lymphadenopathy noted. BACK: There is no spinal tenderness noted. ASSESSMENT: 1. Severe profuse diarrhea. The differential is infectious diarrhea versus chemo-induced diarrhea. 2. Leukopenia, anemia and thrombocytopenia. This is all due to the chemotherapy. 3. Neutropenia with bandemia most likely due to infection. PLAN: I have discussed with the patient regarding his severe diarrhea. Over the weekend, he had profuse diarrhea. However, when he came to the emergency room early in the morning yesterday, since then, he had not gone to the bathroom as yet. His diarrhea seems to have improved. He still has not been able to give the specimen for stool test, as he had not had any bowel movement since he is in the hospital. Overall, he is feeling better. He denies any fevers. He is on cefepime and Flagyl. He has leukopenia with neutropenia and bandemia, all consistent with infection. I have recommended to continue the present treatment plan. He is getting hydration as well. We discussed that patient may need to be in the hospital for 48 hours and if everything is good, then he will be able to go home by this Sunday. The patient has asked several questions and these were answered. Thank you for asking my opinion. MD LUZ Berkowitz/ROSARIO , 11:41 PM , 12:30 AM RENALDO
[2017-09-13 05:56] LABS: AUTOMATED NEUTROPHIL # 3.1 TH/MM3 (1.8-7.7); BASOPHIL % 0.3 % (0.0-2.0); EOSINOPHIL % 0.6 % (0.0-4.0); LYMPHOCYTE # 0.1 TH/MM3 (1.0-4.8); MEAN CELL VOLUME 86.2 FL (80.0-100.0); MEAN CORPUSCULAR HEMOGLOBIN 28.7 PG (27.0-34.0); MEAN CORPUSCULAR HGB CONC 33.3 % (32.0-36.0); MEAN PLATELET VOLUME 7.7 FL (7.0-11.0); MONO % 4.1 % (0.0-8.0); MONOCYTE # 0.1 TH/MM3 (0-0.9); PLATELET COUNT 71 TH/MM3 (150-450); RED BLOOD COUNT 3.13 MIL/MM3 (4.50-5.90); WHITE BLOOD COUNT 3.5 TH/MM3 (4.0-11.0)
[2017-09-13 06:22] LABS: ALBUMIN 2.7 GM/DL (3.4-5.0); BICARBONATE 19.2 MEQ/L (21.0-32.0); BLOOD UREA NITROGEN 13 MG/DL (7-18); CALCIUM 8.1 MG/DL (8.5-10.1); CHLORIDE 109 MEQ/L (98-107); CREATININE 0.87 MG/DL (0.60-1.30); GLOMERULAR FILTRATION RATE 85 ML/MIN (>89); GLUCOSE,RANDOM 110 MG/DL (74-106); MAGNESIUM 1.9 MG/DL (1.5-2.5); SODIUM (NA) 138 MEQ/L (136-145)
[2017-09-13 06:23] LABS: ALT (GPT) 12 U/L (12-78); AST (GOT) 20 U/L (15-37)
[2017-09-13 06:26] LABS: TROPONIN I LESS THAN 0.02 NG/ML (0.02-0.05)
[2017-09-13 06:32] LABS: ALKALINE PHOSPHATASE 60 U/L (45-117); FREE T4 1.18 NG/DL (0.76-1.46); TOTAL BILIRUBIN ADULT 0.6 MG/DL (0.2-1.0)
[2017-09-13] MEDS: DOCUSATE SODIUM 50 MG/SENNA 8.6 MG TAB PO SCH ×2 (08:16→19:55)
[2017-09-13] MEDS: SODIUM CHLORIDE 0.9% FLUSH 10 ML FLUSH IV FLUSH SCH ×2 (08:16→19:56)
[2017-09-13] MEDS: SODIUM CHLOR 0.9% 1000 ML INJ 1,000 ML IV SCH ×2 (08:17→13:14)
--- NOTE | 2017-09-13 09:51 | PD.ONC.PN ---
Subjective Subjective Remarks Afebrile overnight. Patient resting in bed in nad. No complaints. states he has not had diarrhea since yesterday. feeling improved today. Objective Data Date Time Temp Pulse Resp B/P (MAP) Pulse Ox O2 Delivery O2 Flow Rate FiO2 09/13/17 08:08 96 09/13/17 08:00 99.0 94 18 118/59 (78) 94 09/13/17 04:00 98.7 93 16 126/57 (80) 95 09/13/17 04:00 86 09/13/17 00:00 99.6 106 16 128/62 (84) 96 09/13/17 00:00 117 09/12/17 20:00 100 09/12/17 20:00 99.0 101 16 140/65 (90) 96 09/12/17 19:54 99 21 09/12/17 17:19 98 09/12/17 16:00 98 09/12/17 15:54 98.0 94 22 120/58 (78) 98 09/12/17 12:35 97.6 99 21 106/56 (73) 99 09/12/17 11:55 09/12/17 09:53 79 18 145/67 (93) 100 Room Air 09/13/17 09/13/17 09/13/17 07:00 15:00 23:00 Output Total 700 ml Balance -700 ml Result Diagram: 09/13/17 0410 09/13/17 0410 Laboratory Results Laboratory Tests Test 09/12/17 18:12 09/12/17 20:20 09/13/17 04:10 Total Creatine Kinase 35 U/L 35 U/L 33 U/L Troponin I LESS THAN 0.02 NG/ML LESS THAN 0.02 NG/ML LESS THAN 0.02 NG/ML White Blood Count 3.5 TH/MM3 Red Blood Count 3.13 MIL/MM3 Hemoglobin 9.0 GM/DL Hematocrit 27.0 % Mean Corpuscular Volume 86.2 FL Mean Corpuscular Hemoglobin 28.7 PG Mean Corpuscular Hemoglobin Concent 33.3 % Red Cell Distribution Width 19.0 % Platelet Count 71 TH/MM3 Mean Platelet Volume 7.7 FL Neutrophils (%) (Auto) 91.0 % Lymphocytes (%) (Auto) 4.0 % Monocytes (%) (Auto) 4.1 % Eosinophils (%) (Auto) 0.6 % Basophils (%) (Auto) 0.3 % Neutrophils # (Auto) 3.1 TH/MM3 Lymphocytes # (Auto) 0.1 TH/MM3 Monocytes # (Auto) 0.1 TH/MM3 Eosinophils # (Auto) 0.0 TH/MM3 Basophils # (Auto) 0.0 TH/MM3 CBC Comment AUTO DIFF Blood Urea Nitrogen 13 MG/DL Creatinine 0.87 MG/DL Random Glucose 110 MG/DL Total Protein 6.0 GM/DL Albumin 2.7 GM/DL Calcium Level 8.1 MG/DL Phosphorus Level 2.0 MG/DL Magnesium Level 1.9 MG/DL Alkaline Phosphatase 60 U/L Aspartate Amino Transf (AST/SGOT) 20 U/L Alanine Aminotransferase (ALT/SGPT) 12 U/L Total Bilirubin 0.6 MG/DL Sodium Level 138 MEQ/L Potassium Level 3.9 MEQ/L Chloride Level 109 MEQ/L Carbon Dioxide Level 19.2 MEQ/L Anion Gap 10 MEQ/L Estimat Glomerular Filtration Rate 85 ML/MIN Free Thyroxine 1.18 NG/DL Thyroid Stimulating Hormone 3rd Gen 1.980 uIU/ML Culture Results Microbiology Date/Time Source Procedure Growth Status 09/12/17 11:33 Blood Peripheral Aerobic Blood Culture Pending Received 09/12/17 11:33 Blood Peripheral Anaerobic Blood Culture Pending Received 09/12/17 11:26 Blood Peripheral Aerobic Blood Culture Pending Received 09/12/17 11:26 Blood Peripheral Anaerobic Blood Culture Pending Received 09/12/17 06:55 Blood Peripheral Aerobic Blood Culture Pending Received 09/12/17 06:55 Blood Peripheral Anaerobic Blood Culture Pending Received 09/12/17 06:50 Blood Peripheral Aerobic Blood Culture Pending Received 09/12/17 06:50 Blood Peripheral Anaerobic Blood Culture Pending Received Administered Medications Medications (Trade) Dose Ordered Sig/Jaki Route PRN Reason Start Time Stop Time Status Last Admin Dose Admin Amlodipine Besylate (Norvasc) 10 mg DAILY PO 09/12/17 09:00 09/13/17 08:16 Sodium Chloride 1,000 ml @ 100 mls/hr Q10H IV 09/12/17 09:00 09/13/17 08:17 Sodium Chloride (NS Flush) 2 ml BID IV FLUSH 09/12/17 09:00 09/13/17 08:16 Ondansetron HCl (Zofran Odt) 4 mg Q6H PRN PO NAUSEA OR VOMITING 09/12/17 09:00 09/13/17 00:45 Heparin Sodium (Porcine) (Heparin Inj) 5,000 units Q8H SQ 09/12/17 10:00 09/12/17 19:37 Acetaminophen (Tylenol) 650 mg Q6H PRN PO PAIN SCALE 1 TO 2 09/12/17 08:45 09/13/17 08:27 Senna/Docusate Sodium (Tayla-Colace) 1 tab BID PO 09/12/17 09:30 09/13/17 08:16 Cefepime HCl 2000 mg/Sodium Chloride 100 ml @ 200 mls/hr Q8H IV 09/12/17 16:00 09/13/17 08:16 Metronidazole 100 ml @ 100 mls/hr Q8H IV 09/12/17 17:00 09/13/17 00:02 Objective Remarks GENERAL: Pleasant elderly male, sitting up in chair next to bed in [facility]. SKIN: Warm and dry. HEAD: Normocephalic. EYES: No injection or drainage. NECK: Supple, trachea midline. CARDIOVASCULAR: Regular rate and rhythm RESPIRATORY: Breath sounds equal bilaterally. No accessory muscle use. GASTROINTESTINAL: Abdomen soft, non-tender, nondistended. EXTREMITIES: No cyanosis NEUROLOGICAL: awake and alert. normal speech. moving extremities. Assessment/Plan Problem List: (1) Diarrhea ICD Codes: R19.7 - Diarrhea, unspecified Status: Acute Plan: 09/13: await stool testing. continue antibiotics. monitor blood cultures. --improved, awaiting stool testing. --infectious diarrhea versus chemo-induced diarrhea. (2) Colorectal cancer ICD Codes: C19 - Malignant neoplasm of rectosigmoid junction Plan: --diagnosed with rectal cancer with liver and lung metastasis in 2009. --s/p surgery with low anterior resection, liver resection and cholecystectomy in 2010. --s/p radiation to lung mets. --currently on Avastin and FOLFIRI chemotherapy since 10/2015. --last chemotherapy was on 09/03/2017, last week, Sunday. (3) Pancytopenia due to antineoplastic chemotherapy ICD Codes: D61.810 - Antineoplastic chemotherapy induced pancytopenia; T45.1X5A - Adverse effect of antineoplastic and immunosuppressive drugs, initial encounter Plan: --transfuse as needed to keep hgb>7.5, platelets>20K --monitor neutrophil count Assessment 77y/o male with metastatic colorectal cancer admitted with severe diarrhea + neutropenia. h/o Asbestosis, gastroesophageal reflux disease, hypertension, rectal cancer with liver and lung metastasis.Colon resection, cholecystectomy, Infusaport placement, lung resection. Problem Qualifiers (1) Diarrhea: Qualified Codes: R19.7 - Diarrhea, unspecified Jyoti Gonzales September 13, 2017 09:51
[2017-09-13 10:06] LABS: BANDS 23 % (0-6); LYMPHOCYTES 4 % (9-44); NEUTROPHIL # MANUAL DIFF 3.3 TH/MM3 (1.8-7.7); POLYS (SEG NEUTROPHILS) 71 % (16-70)
[2017-09-13] MEDS: HEPARIN SODIUM - SQ 10,000 UNITS/ML VIAL SQ SCH ×2 (10:32→18:51)
--- NOTE | 2017-09-13 12:34 | HHI.PR ---
Subjective Remarks Patient is a 77-year-old male who presented to the emergency department at [facility] this morning with diarrhea that has been ongoing on and off since Sunday. Patient states that he has had diarrhea on Sunday and Sunday then took some Imodium symptoms resolved and he reports again this last evening he had some more diarrhea. And had diarrhea 4-5 times per day. He states it is a light brown and is watery in nature. He denies any blood or mucus. Denies any black or tarry stools has a history of chemotherapy. Most recently on September 03. He sees Dr. RODRIGUEZ his oncologist, and decided to come to the hospital since he was still having the diarrhea. Denies any recent antibiotics except last March 12, 2017 sometimes get short of breath more so with chemo therapy. Patient did not want to get worse and therefore came to the emergency department for evaluation. Has history of colon cancer with metastasis to the liver and lung with history of a resection of the colon cancer and history of liver resection and history of a lung biopsy Patient also states that he had previously been diagnosed with asbestosis and acid reflux and hypertension 09-13 PATIENT IS HYPOTENSIVE TODAY NO DIARRHEA WILL GIVE A FLUID BOLUS AM LABS DW PATIENT AND RN AND CM PT AND OT MONITOR TODAY Objective Vitals Vital Signs Date Time Temp Pulse Resp B/P (MAP) Pulse Ox O2 Delivery O2 Flow Rate FiO2 09/13/17 10:46 94 09/13/17 08:08 96 09/13/17 08:00 99.0 94 18 118/59 (78) 94 09/13/17 04:00 98.7 93 16 126/57 (80) 95 09/13/17 04:00 86 09/13/17 00:00 99.6 106 16 128/62 (84) 96 09/13/17 00:00 117 09/12/17 20:00 100 09/12/17 20:00 99.0 101 16 140/65 (90) 96 09/12/17 19:54 99 21 09/12/17 17:19 98 09/12/17 16:00 98 09/12/17 15:54 98.0 94 22 120/58 (78) 98 09/12/17 12:35 97.6 99 21 106/56 (73) 99 I/O 5/30/18 5/30/18 09/12/17 09/13/17 09/13/17 09/13/17 07:00 15:00 23:00 07:00 15:00 23:00 Intake Total 700 ml Output Total 700 ml Balance 700 ml -700 ml Intake IV Total 700 ml Output Urine Total 700 ml # Bowel Movements 0 Result Diagram: 09/13/17 0410 09/13/17 0410 Other Results Laboratory Tests Test 09/12/17 06:30 09/12/17 06:54 09/12/17 07:00 09/12/17 18:12 White Blood Count 1.5 TH/MM3 Red Blood Count 3.48 MIL/MM3 Hemoglobin 9.9 GM/DL Hematocrit 29.6 % Mean Corpuscular Volume 85.2 FL Mean Corpuscular Hemoglobin 28.6 PG Mean Corpuscular Hemoglobin Concent 33.5 % Red Cell Distribution Width 18.8 % Platelet Count 84 TH/MM3 Mean Platelet Volume 7.4 FL Neutrophils (%) (Auto) 53.6 % Lymphocytes (%) (Auto) 32.2 % Monocytes (%) (Auto) 10.1 % Eosinophils (%) (Auto) 3.4 % Basophils (%) (Auto) 0.7 % Neutrophils # (Auto) 0.8 TH/MM3 Lymphocytes # (Auto) 0.5 TH/MM3 Monocytes # (Auto) 0.2 TH/MM3 Eosinophils # (Auto) 0.1 TH/MM3 Basophils # (Auto) 0.0 TH/MM3 CBC Comment AUTO DIFF Differential Total Cells Counted 100 Neutrophils % (Manual) 40 % Band Neutrophils % 15 % Lymphocytes % 31 % Monocytes % 10 % Eosinophils % 1 % Basophils % 2 % Neutrophils # (Manual) 0.8 TH/MM3 Myelocytes 1 % Differential Comment FINAL DIFF MANUAL Platelet Estimate LOW Platelet Morphology Comment NORMAL Ovalocytes 1+ Blood Urea Nitrogen 20 MG/DL Creatinine 0.91 MG/DL Random Glucose 101 MG/DL Total Protein 6.7 GM/DL Albumin 3.3 GM/DL Calcium Level 8.5 MG/DL Magnesium Level 2.0 MG/DL Alkaline Phosphatase 70 U/L Aspartate Amino Transf (AST/SGOT) 18 U/L Alanine Aminotransferase (ALT/SGPT) 14 U/L Total Bilirubin 0.6 MG/DL Sodium Level 137 MEQ/L Potassium Level 3.7 MEQ/L Chloride Level 106 MEQ/L Carbon Dioxide Level 23.2 MEQ/L Anion Gap 8 MEQ/L Estimat Glomerular Filtration Rate 81 ML/MIN Total Creatine Kinase 35 U/L 35 U/L Troponin I LESS THAN 0.02 NG/ML LESS THAN 0.02 NG/ML C-Reactive Protein 0.41 MG/DL B-Type Natriuretic Peptide 63 PG/ML Lipase 75 U/L Lactic Acid Level 0.8 mmol/L Urine Color LIGHT-YELLOW Urine Turbidity CLEAR Urine pH 6.5 Urine Specific [place] 1.003 Urine Protein NEG mg/dL Urine Glucose (UA) NEG mg/dL Urine Ketones NEG mg/dL Urine Occult Blood NEG Urine Nitrite NEG Urine Bilirubin NEG Urine Urobilinogen LESS THAN 2.0 MG/DL Urine Leukocyte Esterase NEG Urine RBC LESS THAN 1 /hpf Microscopic Urinalysis Comment CULT NOT INDICATED Test 09/12/17 20:20 09/13/17 04:10 Total Creatine Kinase 35 U/L 33 U/L Troponin I LESS THAN 0.02 NG/ML LESS THAN 0.02 NG/ML White Blood Count 3.5 TH/MM3 Red Blood Count 3.13 MIL/MM3 Hemoglobin 9.0 GM/DL Hematocrit 27.0 % Mean Corpuscular Volume 86.2 FL Mean Corpuscular Hemoglobin 28.7 PG Mean Corpuscular Hemoglobin Concent 33.3 % Red Cell Distribution Width 19.0 % Platelet Count 71 TH/MM3 Mean Platelet Volume 7.7 FL Neutrophils (%) (Auto) 91.0 % Lymphocytes (%) (Auto) 4.0 % Monocytes (%) (Auto) 4.1 % Eosinophils (%) (Auto) 0.6 % Basophils (%) (Auto) 0.3 % Neutrophils # (Auto) 3.1 TH/MM3 Lymphocytes # (Auto) 0.1 TH/MM3 Monocytes # (Auto) 0.1 TH/MM3 Eosinophils # (Auto) 0.0 TH/MM3 Basophils # (Auto) 0.0 TH/MM3 CBC Comment AUTO DIFF Differential Total Cells Counted 100 Neutrophils % (Manual) 71 % Band Neutrophils % 23 % Lymphocytes % 4 % Eosinophils % 2 % Neutrophils # (Manual) 3.3 TH/MM3 Differential Comment FINAL DIFF MANUAL Platelet Estimate LOW Platelet Morphology Comment NORMAL Blood Urea Nitrogen 13 MG/DL Creatinine 0.87 MG/DL Random Glucose 110 MG/DL Total Protein 6.0 GM/DL Albumin 2.7 GM/DL Calcium Level 8.1 MG/DL Phosphorus Level 2.0 MG/DL Magnesium Level 1.9 MG/DL Alkaline Phosphatase 60 U/L Aspartate Amino Transf (AST/SGOT) 20 U/L Alanine Aminotransferase (ALT/SGPT) 12 U/L Total Bilirubin 0.6 MG/DL Sodium Level 138 MEQ/L Potassium Level 3.9 MEQ/L Chloride Level 109 MEQ/L Carbon Dioxide Level 19.2 MEQ/L Anion Gap 10 MEQ/L Estimat Glomerular Filtration Rate 85 ML/MIN Free Thyroxine 1.18 NG/DL Thyroid Stimulating Hormone 3rd Gen 1.980 uIU/ML Imaging Last Impressions Chest X-Ray 09/12/17 0604 Signed Impressions: CONCLUSION: Reduction in size of the left pleural effusion with slight effusion remaining and possible left lung base consolidation. Objective Remarks GENERAL: Thin appearing male in no acute distress at this time but hypotensive on the monitor will give fluid bolus SKIN: Warm and dry. HEAD: Atraumatic. Normocephalic. EYES: Pupils equal and round. No scleral icterus. No injection or drainage. Extraocular muscles intact wearing glasses ENT: No nasal bleeding or discharge. Mucous membranes pink and moist. Tongue is midline supple NECK: Trachea midline. No JVD. Supple CARDIOVASCULAR: Regular rate and rhythm. S1-S2 no S3 or S4 RESPIRATORY: No accessory muscle use. Clear to auscultation. Breath sounds equal bilaterally. GASTROINTESTINAL: Abdomen soft, non-tender, nondistended. Hepatic and splenic margins not palpable. MUSCULOSKELETAL: Extremities without clubbing, cyanosis, or edema. No obvious deformities. NEUROLOGICAL: Awake and alert. No obvious cranial nerve deficits. Motor grossly within normal limits. 4 out of 5 muscle strength in the arms and legs. Normal speech. PSYCHIATRIC: Appropriate mood and affect; insight and judgment normal. Procedures NONE Medications and IVs Current Medications Sodium Chloride 500 ml @ 500 mls/hr BOLUS ONCE IV Last administered on at 06:46; Start 09/12/17 at 06:15; Stop 09/12/17 at 07:14; Status DC Cefepime HCl 1000 mg/Sodium Chloride 100 ml @ 200 mls/hr ONCE ONCE IV Last administered on 09/12/17at 08:04; Start 09/12/17 at 08:00; Stop 09/12/17 at 08:29 ; Status DC Metronidazole 100 ml @ 100 mls/hr ONCE ONCE IV Last administered on at 08:34; Start 09/12/17 at 08:00; Stop 09/12/17 at 09:04; Status DC Amlodipine Besylate (Norvasc) 10 mg DAILY PO Last administered on 09/13/17at 08: 16; Start 09/12/17 at 09:00 Sodium Chloride 1,000 ml @ 100 mls/hr Q10H IV Last administered on 09/13/17at 08:17; Start 09/12/17 at 09:00 Sodium Chloride (NS Flush) 2 ml UNSCH PRN IV FLUSH FLUSH AFTER USING IV ACCESS ; Start 09/12/17 at 08:45 Sodium Chloride (NS Flush) 2 ml BID IV FLUSH Last administered on 09/13/17at 08: 16; Start 09/12/17 at 09:00 Acetaminophen (Tylenol) 650 mg Q4H PRN PO TEMP > 100.4; Start 09/12/17 at 08:45 Ondansetron HCl (Zofran Odt) 4 mg Q6H PRN PO NAUSEA OR VOMITING Last administered on 09/13/17at 00:45; Start 09/12/17 at 09:00 Metoclopramide HCl (Reglan Inj) 5 mg Q6H PRN IV PUSH NAUSEA OR VOMITING; Start 09/12/17 at 08:45 Zolpidem Tartrate (Ambien) 5 mg HS PRN PO INSOMNIA; Start 09/12/17 at 08:45 Heparin Sodium (Porcine) (Heparin Inj) 5,000 units Q8H SQ Last administered on 09/13/17at 10:32; Start 09/12/17 at 10:00 Acetaminophen (Tylenol) 650 mg Q6H PRN PO PAIN SCALE 1 TO 2 Last administered on 09/13/17at 08:27; Start 09/12/17 at 08:45 Oxycodone/ Acetaminophen (Percocet 5-325 Mg) 1 tab Q6H PRN PO PAIN SCALE 3 TO 5; Start 09/12/17 at 08:45 Oxycodone/ Acetaminophen (Percocet 10-325 Mg) 1 tab Q6H PRN PO PAIN SCALE 6 TO 10; Start 09/12/17 at 08:45 Morphine Sulfate (Morphine Inj) 2 mg Q3H PRN IV PUSH Pain 3-5; if unable to take PO; Start 09/12/17 at 09:15 Morphine Sulfate (Morphine Inj) 4 mg Q3H PRN IV PUSH Pain 6-10;if unable to take PO; Start 09/12/17 at 09:15 Morphine Sulfate (Morphine Inj) 4 mg Q3H PRN IV PUSH BREAKTHROUGH PAIN; Start 09/12/17 at 09:15 Naloxone HCl (Narcan Inj) 0.4 mg UNSCH PRN IV PUSH SEE LABEL COMMENTS; Start at 08:45 Senna/Docusate Sodium (Tayla-Colace) 1 tab BID PO Last administered on at 08:16; Start 09/12/17 at 09:30 Magnesium Hydroxide (Milk Of Magnesia Liq) 30 ml Q12H PRN PO Mild constipation ; Start 09/12/17 at 08:45 Sennosides (Senokot) 17.2 mg Q12H PRN PO Moderate constipation; Start 09/12/17 at 08:45 Bisacodyl (Dulcolax Supp) 10 mg DAILY PRN RECTAL SEVERE CONSITIPATION; Start at 08:45 Lactulose (Lactulose Liq) 30 ml DAILY PRN PO SEVERE CONSITIPATION; Start at 08:45 Cefepime HCl 2000 mg/Sodium Chloride 100 ml @ 200 mls/hr Q8H IV Last administered on 09/13/17at 08:16; Start 09/12/17 at 16:00 Metronidazole 100 ml @ 100 mls/hr Q8H IV Last administered on 09/13/17at 10:31 ; Start 09/12/17 at 17:00 A/P Assessment and Plan Diarrhea unspecified had recently had chemotherapy for his colon/rectal cancer We will continue on fluids Continue on cefepime and Flagyl Continue on fluids Pain control as needed will consult Oncology Suspected viral gastroenteritis versus other or secondary to chemotherapy Hypertension resume home medications Send stool studies Leukopenia due to chemotherapy Anemia due to chemotherapy Thrombocytopenia due to chemotherapy DVT prophylaxis with heparin GERD continue on home medications Asbestos continue on duo nebs as needed A.m. labs Consult oncology Continue with physical therapy and Occupational Therapy Discharge Planning Pending improvement of blood pressure and counts Jv Felton DO September 13, 2017 12:33
[2017-09-13 16:06] LABS: HEMOGLOBIN A1C 6.2 % (4.3-6.0)
[2017-09-14] VITALS: BP 100/46; PULSE 74; PULSE 94; RESP 16; TEMP 100.2; O2SAT 96
[2017-09-14] MEDS: SODIUM CHLOR 0.9% 1000 ML INJ 1,000 ML IV SCH (00:08)
[2017-09-14] MEDS: CEFEPIME INJ 2,000 MG in SODIUM CHLORIDE 0.9% INJ 100 ML IV SCH ×2 (00:10→08:00)
[2017-09-14] MEDS: metroNIDAZOLE 500 MG INJ 100 ML IV SCH ×2 (00:12→09:00)
[2017-09-14 01:00] VITALS: TEMP 99.3
[2017-09-14] MEDS: HEPARIN SODIUM - SQ 10,000 UNITS/ML VIAL SQ SCH ×2 (02:00→10:00)
[2017-09-14 04:00] VITALS: BP 125/54; PULSE 97; PULSE 98; RESP 16; TEMP 99.2; O2SAT 94
[2017-09-14 04:59] LABS: AUTOMATED NEUTROPHIL # 3.1 TH/MM3 (1.8-7.7); BASOPHIL % 0.5 % (0.0-2.0); HEMATOCRIT 26.3 % (39.0-51.0); HEMOGLOBIN 8.6 GM/DL (13.0-17.0); LYMPH % 6.4 % (9.0-44.0); LYMPHOCYTE # 0.2 TH/MM3 (1.0-4.8); MEAN CELL VOLUME 86.6 FL (80.0-100.0); MEAN CORPUSCULAR HEMOGLOBIN 28.4 PG (27.0-34.0); MEAN CORPUSCULAR HGB CONC 32.8 % (32.0-36.0); MEAN PLATELET VOLUME 7.4 FL (7.0-11.0); MONO % 3.5 % (0.0-8.0); MONOCYTE # 0.1 TH/MM3 (0-0.9); NEUT % 88.6 % (16.0-70.0); PLATELET COUNT 66 TH/MM3 (150-450); RED BLOOD COUNT 3.03 MIL/MM3 (4.50-5.90); RED CELL DISTRIBUTION WIDTH 19.7 % (11.6-17.2); WHITE BLOOD COUNT 3.5 TH/MM3 (4.0-11.0)
[2017-09-14 05:14] LABS: ALBUMIN 2.4 GM/DL (3.4-5.0); AST (GOT) 13 U/L (15-37); BICARBONATE 17.5 MEQ/L (21.0-32.0); BLOOD UREA NITROGEN 11 MG/DL (7-18); CALCIUM 7.7 MG/DL (8.5-10.1); CHLORIDE 111 MEQ/L (98-107); GLOMERULAR FILTRATION RATE 82 ML/MIN (>89); GLUCOSE,RANDOM 95 MG/DL (74-106); MAGNESIUM 1.6 MG/DL (1.5-2.5); SODIUM (NA) 138 MEQ/L (136-145)
[2017-09-14 05:15] LABS: ALT (GPT) 11 U/L (12-78)
[2017-09-14 05:17] LABS: ALKALINE PHOSPHATASE 52 U/L (45-117); PHOSPHORUS 1.4 MG/DL (2.5-4.9); TOTAL BILIRUBIN ADULT 0.7 MG/DL (0.2-1.0); TOTAL PROTEIN 5.3 GM/DL (6.4-8.2)
[2017-09-14 08:00] VITALS: BP 117/58; PULSE 90; PULSE 95; RESP 16; TEMP 99.2; O2SAT 98
[2017-09-14] MEDS: DOCUSATE SODIUM 50 MG/SENNA 8.6 MG TAB PO SCH (09:00)
--- NOTE | 2017-09-14 09:12 | PD.ONC.PN ---
Subjective Subjective Remarks tMAX 100.2 overnight. patient very eager to go home. no diarrhea since being here. yesterday his stool was formed. he feels good. states he will feel even better at home. Objective Data Date Time Temp Pulse Resp B/P (MAP) Pulse Ox O2 Delivery O2 Flow Rate FiO2 09/14/17 08:00 99.2 90 16 117/58 (77) 98 09/14/17 04:00 98 09/14/17 04:00 99.2 97 16 125/54 (77) 94 09/14/17 01:00 99.3 09/14/17 00:00 94 09/14/17 00:00 100.2 74 16 100/46 (64) 96 09/13/17 20:00 94 09/13/17 16:00 86 09/13/17 16:00 98.6 94 18 117/57 (77) 95 09/13/17 13:59 116/52 (73) 09/13/17 12:00 85 09/13/17 12:00 97.9 88 18 79/48 (58) 95 09/13/17 10:46 94 09/14/17 09/14/17 09/14/17 07:00 15:00 23:00 Intake Total 1190 ml Output Total 400 ml Balance 790 ml Result Diagram: 09/14/17 0340 09/14/17 0340 Laboratory Results Laboratory Tests Test 09/13/17 15:42 09/14/17 03:40 Stool C. difficile Toxin (PCR) NEGATIVE Stl C. difficile Toxin Epiderm 027 PRESUMPTIVE NEGATIVE White Blood Count 3.5 TH/MM3 Red Blood Count 3.03 MIL/MM3 Hemoglobin 8.6 GM/DL Hematocrit 26.3 % Mean Corpuscular Volume 86.6 FL Mean Corpuscular Hemoglobin 28.4 PG Mean Corpuscular Hemoglobin Concent 32.8 % Red Cell Distribution Width 19.7 % Platelet Count 66 TH/MM3 Mean Platelet Volume 7.4 FL Neutrophils (%) (Auto) 88.6 % Lymphocytes (%) (Auto) 6.4 % Monocytes (%) (Auto) 3.5 % Eosinophils (%) (Auto) 1.0 % Basophils (%) (Auto) 0.5 % Neutrophils # (Auto) 3.1 TH/MM3 Lymphocytes # (Auto) 0.2 TH/MM3 Monocytes # (Auto) 0.1 TH/MM3 Eosinophils # (Auto) 0.0 TH/MM3 Basophils # (Auto) 0.0 TH/MM3 CBC Comment AUTO DIFF Blood Urea Nitrogen 11 MG/DL Creatinine 0.90 MG/DL Random Glucose 95 MG/DL Total Protein 5.3 GM/DL Albumin 2.4 GM/DL Calcium Level 7.7 MG/DL Phosphorus Level 1.4 MG/DL Magnesium Level 1.6 MG/DL Alkaline Phosphatase 52 U/L Aspartate Amino Transf (AST/SGOT) 13 U/L Alanine Aminotransferase (ALT/SGPT) 11 U/L Total Bilirubin 0.7 MG/DL Sodium Level 138 MEQ/L Potassium Level 3.7 MEQ/L Chloride Level 111 MEQ/L Carbon Dioxide Level 17.5 MEQ/L Anion Gap 10 MEQ/L Estimat Glomerular Filtration Rate 82 ML/MIN Culture Results Microbiology Date/Time Source Procedure Growth Status 09/12/17 11:33 Blood Peripheral Aerobic Blood Culture - Preliminary NO GROWTH IN 1 DAY Resulted 09/12/17 11:33 Blood Peripheral Anaerobic Blood Culture - Preliminary NO GROWTH IN 1 DAY Resulted 09/12/17 11:26 Blood Peripheral Aerobic Blood Culture - Preliminary NO GROWTH IN 1 DAY Resulted 09/12/17 11:26 Blood Peripheral Anaerobic Blood Culture - Preliminary NO GROWTH IN 1 DAY Resulted 09/12/17 06:55 Blood Peripheral Aerobic Blood Culture - Preliminary NO GROWTH IN 1 DAY Resulted 09/12/17 06:55 Blood Peripheral Anaerobic Blood Culture - Preliminary NO GROWTH IN 1 DAY Resulted 09/12/17 06:50 Blood Peripheral Aerobic Blood Culture - Preliminary NO GROWTH IN 1 DAY Resulted 09/12/17 06:50 Blood Peripheral Anaerobic Blood Culture - Preliminary NO GROWTH IN 1 DAY Resulted 09/13/17 15:42 Stool Stool Stool Pus (JD) Pending Received 09/13/17 15:42 Stool Stool Pending Received Administered Medications Medications (Trade) Dose Ordered Sig/Jaki Route PRN Reason Start Time Stop Time Status Last Admin Dose Admin Amlodipine Besylate (Norvasc) 10 mg DAILY PO 09/12/17 09:00 09/13/17 08:16 Sodium Chloride 1,000 ml @ 100 mls/hr Q10H IV 09/12/17 09:00 09/14/17 00:08 Sodium Chloride (NS Flush) 2 ml BID IV FLUSH 09/12/17 09:00 09/13/17 08:16 Ondansetron HCl (Zofran Odt) 4 mg Q6H PRN PO NAUSEA OR VOMITING 09/12/17 09:00 09/13/17 00:45 Heparin Sodium (Porcine) (Heparin Inj) 5,000 units Q8H SQ 09/12/17 10:00 09/13/17 18:51 Acetaminophen (Tylenol) 650 mg Q6H PRN PO PAIN SCALE 1 TO 2 09/12/17 08:45 09/13/17 08:27 Senna/Docusate Sodium (Tayla-Colace) 1 tab BID PO 09/12/17 09:30 09/13/17 08:16 Cefepime HCl 2000 mg/Sodium Chloride 100 ml @ 200 mls/hr Q8H IV 09/12/17 16:00 09/14/17 00:10 Metronidazole 100 ml @ 100 mls/hr Q8H IV 09/12/17 17:00 09/14/17 00:12 Objective Remarks GENERAL: Elderly male, sitting up in bed in [facility]. SKIN: Warm and dry. HEAD: Normocephalic. EYES: No injection or drainage. NECK: Supple, trachea midline. CARDIOVASCULAR: Regular rate and rhythm RESPIRATORY: Breath sounds equal bilaterally. No accessory muscle use. GASTROINTESTINAL: Abdomen soft, non-tender, nondistended. EXTREMITIES: No cyanosis NEUROLOGICAL: awake and alert. normal speech. moving all extremities. Assessment/Plan Problem List: (1) Diarrhea ICD Codes: R19.7 - Diarrhea, unspecified Status: Acute Plan: 09/14/17: clear for discharge. follow up in clinic in 1-2 weeks. --improved, awaiting stool testing. --infectious diarrhea versus chemo-induced diarrhea. (2) Colorectal cancer ICD Codes: C19 - Malignant neoplasm of rectosigmoid junction Plan: --diagnosed with rectal cancer with liver and lung metastasis in 2009. --s/p surgery with low anterior resection, liver resection and cholecystectomy in 2010. --s/p radiation to lung mets. --currently on Avastin and FOLFIRI chemotherapy since 10/2015. --last chemotherapy was on 09/03/2017, last week, Sunday. (3) Pancytopenia due to antineoplastic chemotherapy ICD Codes: D61.810 - Antineoplastic chemotherapy induced pancytopenia; T45.1X5A - Adverse effect of antineoplastic and immunosuppressive drugs, initial encounter Plan: --transfuse as needed to keep hgb>7.5, platelets>20K --monitor neutrophil count Assessment 77y/o male with metastatic colorectal cancer admitted with severe diarrhea + neutropenia. h/o Asbestosis, gastroesophageal reflux disease, hypertension, rectal cancer with liver and lung metastasis.Colon resection, cholecystectomy, Infusaport placement, lung resection. Attending Statement The exam, history, and the medical decision-making described in the above note were completed with the assistance of the mid-level provider. I reviewed and agree with the findings presented. I attest that I had a [id number] encounter with the patient on the same day, and personally performed and documented my assessment and findings in the medical record. no more diarrhea wants to go home. BC are neg Had formed stool yesterday. C diff and pathogen PCR =neg ok to d/c home fu as outpt. Problem Qualifiers (1) Diarrhea: Qualified Codes: R19.7 - Diarrhea, unspecified Jyoti Gonzales Sep 14, 2017 09:12 Andrew Quinonez MD Sep 14, 2017 16:14
[2017-09-14 09:54] LABS: BANDS 17 % (0-6); LYMPHOCYTES 2 % (9-44); MONOCYTES 2 % (0-8); NEUTROPHIL # MANUAL DIFF 3.4 TH/MM3 (1.8-7.7); POLYS (SEG NEUTROPHILS) 79 % (16-70)
[2017-09-14 09:55] LABS: OVALOCYTES 1+ (NORMAL); TOXIC GRANULATION 1+ (NORMAL)
--- NOTE | 2017-09-14 11:13 | HHI.PR ---
Subjective Remarks Patient is a 77-year-old male who presented to the emergency department at [facility] this morning with diarrhea that has been ongoing on and off since Sunday. Patient states that he has had diarrhea on Sunday and Sunday then took some Imodium symptoms resolved and he reports again this last evening he had some more diarrhea. And had diarrhea 4-5 times per day. He states it is a light brown and is watery in nature. He denies any blood or mucus. Denies any black or tarry stools has a history of chemotherapy. Most recently on September 03. He sees Dr. RODRIGUEZ his oncologist, and decided to come to the hospital since he was still having the diarrhea. Denies any recent antibiotics except last March 12, 2017 sometimes get short of breath more so with chemo therapy. Patient did not want to get worse and therefore came to the emergency department for evaluation. Has history of colon cancer with metastasis to the liver and lung with history of a resection of the colon cancer and history of liver resection and history of a lung biopsy Patient also states that he had previously been diagnosed with asbestosis and acid reflux and hypertension 09-13 PATIENT IS HYPOTENSIVE TODAY NO DIARRHEA WILL GIVE A FLUID BOLUS AM LABS DW PATIENT AND RN AND CM PT AND OT MONITOR TODAY 09-14 HAD A FEVER OF 100.2 BUT HAS BEEN CLEARED BY ONCOLOGY WILL DC TO HOME TODAY AUGMENTIN PO LACTINEX PO FOLLOW UP WITH ONCOLOGY NEXT WEEK DW RN AND PT AND CM AND ONCOLOGY Objective Vitals Vital Signs Date Time Temp Pulse Resp B/P (MAP) Pulse Ox O2 Delivery O2 Flow Rate FiO2 09/14/17 08:00 99.2 90 16 117/58 (77) 98 09/14/17 04:00 98 09/14/17 04:00 99.2 97 16 125/54 (77) 94 09/14/17 01:00 99.3 09/14/17 00:00 94 09/14/17 00:00 100.2 74 16 100/46 (64) 96 09/13/17 20:00 94 09/13/17 16:00 86 09/13/17 16:00 98.6 94 18 117/57 (77) 95 09/13/17 13:59 116/52 (73) 09/13/17 12:00 85 09/13/17 12:00 97.9 88 18 79/48 (58) 95 I/O 09/13/17 09/13/17 09/13/17 09/14/17 09/14/17 09/14/17 07:00 15:00 23:00 07:00 15:00 23:00 Intake Total 1200 ml 720 ml 1190 ml Output Total 700 ml 400 ml Balance -700 ml 1200 ml 720 ml 790 ml Intake Oral 720 ml 660 ml IV Total 1200 ml 530 ml Output Urine Total 700 ml 400 ml # Voids 10 # Bowel Movements 0 1 Result Diagram: 09/14/17 0340 09/14/17 0340 Other Results Laboratory Tests Test 09/12/17 06:30 09/12/17 06:54 09/12/17 07:00 09/12/17 18:12 White Blood Count 1.5 TH/MM3 Red Blood Count 3.48 MIL/MM3 Hemoglobin 9.9 GM/DL Hematocrit 29.6 % Mean Corpuscular Volume 85.2 FL Mean Corpuscular Hemoglobin 28.6 PG Mean Corpuscular Hemoglobin Concent 33.5 % Red Cell Distribution Width 18.8 % Platelet Count 84 TH/MM3 Mean Platelet Volume 7.4 FL Neutrophils (%) (Auto) 53.6 % Lymphocytes (%) (Auto) 32.2 % Monocytes (%) (Auto) 10.1 % Eosinophils (%) (Auto) 3.4 % Basophils (%) (Auto) 0.7 % Neutrophils # (Auto) 0.8 TH/MM3 Lymphocytes # (Auto) 0.5 TH/MM3 Monocytes # (Auto) 0.2 TH/MM3 Eosinophils # (Auto) 0.1 TH/MM3 Basophils # (Auto) 0.0 TH/MM3 CBC Comment AUTO DIFF Differential Total Cells Counted 100 Neutrophils % (Manual) 40 % Band Neutrophils % 15 % Lymphocytes % 31 % Monocytes % 10 % Eosinophils % 1 % Basophils % 2 % Neutrophils # (Manual) 0.8 TH/MM3 Myelocytes 1 % Differential Comment FINAL DIFF MANUAL Platelet Estimate LOW Platelet Morphology Comment NORMAL Ovalocytes 1+ Blood Urea Nitrogen 20 MG/DL Creatinine 0.91 MG/DL Random Glucose 101 MG/DL Total Protein 6.7 GM/DL Albumin 3.3 GM/DL Calcium Level 8.5 MG/DL Magnesium Level 2.0 MG/DL Alkaline Phosphatase 70 U/L Aspartate Amino Transf (AST/SGOT) 18 U/L Alanine Aminotransferase (ALT/SGPT) 14 U/L Total Bilirubin 0.6 MG/DL Sodium Level 137 MEQ/L Potassium Level 3.7 MEQ/L Chloride Level 106 MEQ/L Carbon Dioxide Level 23.2 MEQ/L Anion Gap 8 MEQ/L Estimat Glomerular Filtration Rate 81 ML/MIN Total Creatine Kinase 35 U/L 35 U/L Troponin I LESS THAN 0.02 NG/ML LESS THAN 0.02 NG/ML C-Reactive Protein 0.41 MG/DL B-Type Natriuretic Peptide 63 PG/ML Lipase 75 U/L Lactic Acid Level 0.8 mmol/L Urine Color LIGHT-YELLOW Urine Turbidity CLEAR Urine pH 6.5 Urine Specific [place] 1.003 Urine Protein NEG mg/dL Urine Glucose (UA) NEG mg/dL Urine Ketones NEG mg/dL Urine Occult Blood NEG Urine Nitrite NEG Urine Bilirubin NEG Urine Urobilinogen LESS THAN 2.0 MG/DL Urine Leukocyte Esterase NEG Urine RBC LESS THAN 1 /hpf Microscopic Urinalysis Comment CULT NOT INDICATED Test 09/12/17 20:20 09/13/17 04:10 09/13/17 15:42 09/14/17 03:40 Total Creatine Kinase 35 U/L 33 U/L Troponin I LESS THAN 0.02 NG/ML LESS THAN 0.02 NG/ML White Blood Count 3.5 TH/MM3 3.5 TH/MM3 Red Blood Count 3.13 MIL/MM3 3.03 MIL/MM3 Hemoglobin 9.0 GM/DL 8.6 GM/DL Hematocrit 27.0 % 26.3 % Mean Corpuscular Volume 86.2 FL 86.6 FL Mean Corpuscular Hemoglobin 28.7 PG 28.4 PG Mean Corpuscular Hemoglobin Concent 33.3 % 32.8 % Red Cell Distribution Width 19.0 % 19.7 % Platelet Count 71 TH/MM3 66 TH/MM3 Mean Platelet Volume 7.7 FL 7.4 FL Neutrophils (%) (Auto) 91.0 % 88.6 % Lymphocytes (%) (Auto) 4.0 % 6.4 % Monocytes (%) (Auto) 4.1 % 3.5 % Eosinophils (%) (Auto) 0.6 % 1.0 % Basophils (%) (Auto) 0.3 % 0.5 % Neutrophils # (Auto) 3.1 TH/MM3 3.1 TH/MM3 Lymphocytes # (Auto) 0.1 TH/MM3 0.2 TH/MM3 Monocytes # (Auto) 0.1 TH/MM3 0.1 TH/MM3 Eosinophils # (Auto) 0.0 TH/MM3 0.0 TH/MM3 Basophils # (Auto) 0.0 TH/MM3 0.0 TH/MM3 CBC Comment AUTO DIFF AUTO DIFF Differential Total Cells Counted 100 100 Neutrophils % (Manual) 71 % 79 % Band Neutrophils % 23 % 17 % Lymphocytes % 4 % 2 % Eosinophils % 2 % Neutrophils # (Manual) 3.3 TH/MM3 3.4 TH/MM3 Differential Comment FINAL DIFF MANUAL FINAL DIFF MANUAL Platelet Estimate LOW LOW Platelet Morphology Comment NORMAL NORMAL Blood Urea Nitrogen 13 MG/DL 11 MG/DL Creatinine 0.87 MG/DL 0.90 MG/DL Random Glucose 110 MG/DL 95 MG/DL Total Protein 6.0 GM/DL 5.3 GM/DL Albumin 2.7 GM/DL 2.4 GM/DL Calcium Level 8.1 MG/DL 7.7 MG/DL Phosphorus Level 2.0 MG/DL 1.4 MG/DL Magnesium Level 1.9 MG/DL 1.6 MG/DL Alkaline Phosphatase 60 U/L 52 U/L Aspartate Amino Transf (AST/SGOT) 20 U/L 13 U/L Alanine Aminotransferase (ALT/SGPT) 12 U/L 11 U/L Total Bilirubin 0.6 MG/DL 0.7 MG/DL Sodium Level 138 MEQ/L 138 MEQ/L Potassium Level 3.9 MEQ/L 3.7 MEQ/L Chloride Level 109 MEQ/L 111 MEQ/L Carbon Dioxide Level 19.2 MEQ/L 17.5 MEQ/L Anion Gap 10 MEQ/L 10 MEQ/L Estimat Glomerular Filtration Rate 85 ML/MIN 82 ML/MIN Hemoglobin A1c 6.2 % Free Thyroxine 1.18 NG/DL Thyroid Stimulating Hormone 3rd Gen 1.980 uIU/ML Stool C. difficile Toxin (PCR) NEGATIVE Stl C. difficile Toxin Epiderm 027 PRESUMPTIVE NEGATIVE Monocytes % 2 % Toxic Granulation 1+ Ovalocytes 1+ Imaging Last Impressions Chest X-Ray 09/12/17 0604 Signed Impressions: CONCLUSION: Reduction in size of the left pleural effusion with slight effusion remaining and possible left lung base consolidation. Objective Remarks GENERAL: Thin appearing male in no acute distress at this time but hypotensive on the monitor will give fluid bolus SKIN: Warm and dry. HEAD: Atraumatic. Normocephalic. EYES: Pupils equal and round. No scleral icterus. No injection or drainage. Extraocular muscles intact wearing glasses ENT: No nasal bleeding or discharge. Mucous membranes pink and moist. Tongue is midline supple NECK: Trachea midline. No JVD. Supple CARDIOVASCULAR: Regular rate and rhythm. S1-S2 no S3 or S4 RESPIRATORY: No accessory muscle use. Clear to auscultation. Breath sounds equal bilaterally. GASTROINTESTINAL: Abdomen soft, non-tender, nondistended. Hepatic and splenic margins not palpable. MUSCULOSKELETAL: Extremities without clubbing, cyanosis, or edema. No obvious deformities. NEUROLOGICAL: Awake and alert. No obvious cranial nerve deficits. Motor grossly within normal limits. 4 out of 5 muscle strength in the arms and legs. Normal speech. PSYCHIATRIC: Appropriate mood and affect; insight and judgment normal. Procedures NONE Medications and IVs Current Medications Sodium Chloride 500 ml @ 500 mls/hr BOLUS ONCE IV Last administered on at 06:46; Start 09/12/17 at 06:15; Stop 09/12/17 at 07:14; Status DC Cefepime HCl 1000 mg/Sodium Chloride 100 ml @ 200 mls/hr ONCE ONCE IV Last administered on 09/12/17at 08:04; Start 09/12/17 at 08:00; Stop 09/12/17 at 08:29 ; Status DC Metronidazole 100 ml @ 100 mls/hr ONCE ONCE IV Last administered on at 08:34; Start 09/12/17 at 08:00; Stop 09/12/17 at 09:04; Status DC Amlodipine Besylate (Norvasc) 10 mg DAILY PO Last administered on 09/13/17at 08: 16; Start 09/12/17 at 09:00 Sodium Chloride 1,000 ml @ 100 mls/hr Q10H IV Last administered on 09/14/17at 00 :08; Start 09/12/17 at 09:00 Sodium Chloride (NS Flush) 2 ml UNSCH PRN IV FLUSH FLUSH AFTER USING IV ACCESS ; Start 09/12/17 at 08:45 Sodium Chloride (NS Flush) 2 ml BID IV FLUSH Last administered on 09/13/17at 08: 16; Start 09/12/17 at 09:00 Acetaminophen (Tylenol) 650 mg Q4H PRN PO TEMP > 100.4; Start 09/12/17 at 08:45 Ondansetron HCl (Zofran Odt) 4 mg Q6H PRN PO NAUSEA OR VOMITING Last administered on 09/13/17at 00:45; Start 09/12/17 at 09:00 Metoclopramide HCl (Reglan Inj) 5 mg Q6H PRN IV PUSH NAUSEA OR VOMITING; Start 09/12/17 at 08:45 Zolpidem Tartrate (Ambien) 5 mg HS PRN PO INSOMNIA; Start 09/12/17 at 08:45 Heparin Sodium (Porcine) (Heparin Inj) 5,000 units Q8H SQ Last administered on 09/13/17at 18:51; Start 09/12/17 at 10:00 Acetaminophen (Tylenol) 650 mg Q6H PRN PO PAIN SCALE 1 TO 2 Last administered on 09/13/17at 08:27; Start 09/12/17 at 08:45 Oxycodone/ Acetaminophen (Percocet 5-325 Mg) 1 tab Q6H PRN PO PAIN SCALE 3 TO 5; Start 09/12/17 at 08:45 Oxycodone/ Acetaminophen (Percocet 10-325 Mg) 1 tab Q6H PRN PO PAIN SCALE 6 TO 10; Start 09/12/17 at 08:45 Morphine Sulfate (Morphine Inj) 2 mg Q3H PRN IV PUSH Pain 3-5; if unable to take PO; Start 09/12/17 at 09:15 Morphine Sulfate (Morphine Inj) 4 mg Q3H PRN IV PUSH Pain 6-10;if unable to take PO; Start 09/12/17 at 09:15 Morphine Sulfate (Morphine Inj) 4 mg Q3H PRN IV PUSH BREAKTHROUGH PAIN; Start 09/12/17 at 09:15 Naloxone HCl (Narcan Inj) 0.4 mg UNSCH PRN IV PUSH SEE LABEL COMMENTS; Start at 08:45 Senna/Docusate Sodium (Tayla-Colace) 1 tab BID PO Last administered on at 08:16; Start 09/12/17 at 09:30 Magnesium Hydroxide (Milk Of Magnesia Liq) 30 ml Q12H PRN PO Mild constipation ; Start 09/12/17 at 08:45 Sennosides (Senokot) 17.2 mg Q12H PRN PO Moderate constipation; Start 09/12/17 at 08:45 Bisacodyl (Dulcolax Supp) 10 mg DAILY PRN RECTAL SEVERE CONSITIPATION; Start at 08:45 Lactulose (Lactulose Liq) 30 ml DAILY PRN PO SEVERE CONSITIPATION; Start at 08:45 Cefepime HCl 2000 mg/Sodium Chloride 100 ml @ 200 mls/hr Q8H IV Last administered on 09/14/17at 00:10; Start 09/12/17 at 16:00 Metronidazole 100 ml @ 100 mls/hr Q8H IV Last administered on 09/14/17at 00:12; Start 09/12/17 at 17:00 A/P Assessment and Plan Diarrhea unspecified had recently had chemotherapy for his colon/rectal cancer We will continue on fluids Continue on cefepime and Flagyl Continue on fluids Pain control as needed will consult Oncology Suspected viral gastroenteritis versus other or secondary to chemotherapy Hypertension resume home medications Send stool studies Leukopenia due to chemotherapy Anemia due to chemotherapy Thrombocytopenia due to chemotherapy DVT prophylaxis with heparin GERD continue on home medications Asbestos continue on duo nebs as needed CLEARED BY ONCOLOGY DC TO HOME TODAY LACTINEX AND AUGMENTIN Discharge Planning DC TO HOME TODAY Jv Felton DO Sep 14, 2017 11:13
[2017-09-14] MEDS ORDERED: AMLO10TA2 PO (11:16)
[2017-09-14] MEDS ORDERED: AUGM500T7 PO (11:19)
[2017-09-14] MEDS ORDERED: METR-1 PO (11:19)
[2017-09-14] MEDS ORDERED: LACTCHW3 CHEW (11:19)
--- NOTE | 2017-09-14 11:21 | HHI.DS ---
Discharge Summary Admission Date September 12, 2017 at 12:13 Discharge Date: Sep 14, 2017 Admitting Diagnosis DIARRHEA, NEUTROPENIA (1) Pancytopenia due to antineoplastic chemotherapy ICD Code: D61.810 - Antineoplastic chemotherapy induced pancytopenia; T45.1X5A - Adverse effect of antineoplastic and immunosuppressive drugs, initial encounter Diagnosis: Principal (2) Diarrhea ICD Code: R19.7 - Diarrhea, unspecified Diagnosis: Principal Status: Acute (3) thrombocytopenia due to chemotherapy Diagnosis: Secondary (4) Hypertension ICD Code: I10 - Hypertension Diagnosis: Secondary Status: Chronic Procedures NONE Brief History - From Admission Patient is a 77-year-old male who presented to the emergency department at [facility] this morning with diarrhea that has been ongoing on and off since Sunday. Patient states that he has had diarrhea on Sunday and Sunday then took some Imodium symptoms resolved and he reports again this last evening he had some more diarrhea. And had diarrhea 4-5 times per day. He states it is a light brown and is watery in nature. He denies any blood or mucus. Denies any black or tarry stools has a history of chemotherapy. Most recently on September 03. He sees Dr. QUINONEZ his oncologist, and decided to come to the hospital since he was still having the diarrhea. Denies any recent antibiotics except last March 12, 2017 sometimes get short of breath more so with chemo therapy. Patient did not want to get worse and therefore came to the emergency department for evaluation. Has history of colon cancer with metastasis to the liver and lung with history of a resection of the colon cancer and history of liver resection and history of a lung biopsy Patient also states that he had previously been diagnosed with asbestosis and acid reflux and hypertension CBC/BMP: 09/14/17 0340 09/14/17 0340 Significant Findings Laboratory Tests Test 09/12/17 06:30 09/12/17 06:54 09/12/17 07:00 09/12/17 18:12 White Blood Count 1.5 TH/MM3 (4.0-11.0) Red Blood Count 3.48 MIL/MM3 (4.50-5.90) Hemoglobin 9.9 GM/DL (13.0-17.0) Hematocrit 29.6 % (39.0-51.0) Red Cell Distribution Width 18.8 % (11.6-17.2) Platelet Count 84 TH/MM3 (150-450) Monocytes (%) (Auto) 10.1 % (0.0-8.0) Neutrophils # (Auto) 0.8 TH/MM3 (1.8-7.7) Lymphocytes # (Auto) 0.5 TH/MM3 (1.0-4.8) Band Neutrophils % 15 % (0-6) Monocytes % 10 % (0-8) Neutrophils # (Manual) 0.8 TH/MM3 (1.8-7.7) Myelocytes 1 % (0-0) Platelet Estimate LOW (NORMAL) Ovalocytes 1+ (NORMAL) Blood Urea Nitrogen 20 MG/DL (7-18) Albumin 3.3 GM/DL (3.4-5.0) Estimat Glomerular Filtration Rate 81 ML/MIN (>89) Total Creatine Kinase 35 U/L (39-308) 35 U/L (39-308) Troponin I LESS THAN 0.02 NG/ML LESS THAN 0.02 NG/ML C-Reactive Protein 0.41 MG/DL (0.00-0.30) Test 09/12/17 20:20 09/13/17 04:10 09/13/17 15:42 09/14/17 03:40 Total Creatine Kinase 35 U/L (39-308) 33 U/L (39-308) Troponin I LESS THAN 0.02 NG/ML LESS THAN 0.02 NG/ML White Blood Count 3.5 TH/MM3 (4.0-11.0) 3.5 TH/MM3 (4.0-11.0) Red Blood Count 3.13 MIL/MM3 (4.50-5.90) 3.03 MIL/MM3 (4.50-5.90) Hemoglobin 9.0 GM/DL (13.0-17.0) 8.6 GM/DL (13.0-17.0) Hematocrit 27.0 % (39.0-51.0) 26.3 % (39.0-51.0) Red Cell Distribution Width 19.0 % (11.6-17.2) 19.7 % (11.6-17.2) Platelet Count 71 TH/MM3 (150-450) 66 TH/MM3 (150-450) Neutrophils (%) (Auto) 91.0 % (16.0-70.0) 88.6 % (16.0-70.0) Lymphocytes (%) (Auto) 4.0 % (9.0-44.0) 6.4 % (9.0-44.0) Lymphocytes # (Auto) 0.1 TH/MM3 (1.0-4.8) 0.2 TH/MM3 (1.0-4.8) Neutrophils % (Manual) 71 % (16-70) 79 % (16-70) Band Neutrophils % 23 % (0-6) 17 % (0-6) Lymphocytes % 4 % (9-44) 2 % (9-44) Platelet Estimate LOW (NORMAL) LOW (NORMAL) Random Glucose 110 MG/DL (74-106) Total Protein 6.0 GM/DL (6.4-8.2) 5.3 GM/DL (6.4-8.2) Albumin 2.7 GM/DL (3.4-5.0) 2.4 GM/DL (3.4-5.0) Calcium Level 8.1 MG/DL (8.5-10.1) 7.7 MG/DL (8.5-10.1) Phosphorus Level 2.0 MG/DL (2.5-4.9) 1.4 MG/DL (2.5-4.9) Chloride Level 109 MEQ/L (98-107) 111 MEQ/L (98-107) Carbon Dioxide Level 19.2 MEQ/L (21.0-32.0) 17.5 MEQ/L (21.0-32.0) Estimat Glomerular Filtration Rate 85 ML/MIN (>89) 82 ML/MIN (>89) Hemoglobin A1c 6.2 % (4.3-6.0) Toxic Granulation 1+ (NORMAL) Ovalocytes 1+ (NORMAL) Aspartate Amino Transf (AST/SGOT) 13 U/L (15-37) Alanine Aminotransferase (ALT/SGPT) 11 U/L (12-78) Imaging Last Impressions Chest X-Ray 09/12/17 0604 Signed Impressions: CONCLUSION: Reduction in size of the left pleural effusion with slight effusion remaining and possible left lung base consolidation. PE at Discharge GENERAL: Thin appearing male in no acute distress at this time but hypotensive on the monitor will give fluid bolus SKIN: Warm and dry. HEAD: Atraumatic. Normocephalic. EYES: Pupils equal and round. No scleral icterus. No injection or drainage. Extraocular muscles intact wearing glasses ENT: No nasal bleeding or discharge. Mucous membranes pink and moist. Tongue is midline supple NECK: Trachea midline. No JVD. Supple CARDIOVASCULAR: Regular rate and rhythm. S1-S2 no S3 or S4 RESPIRATORY: No accessory muscle use. Clear to auscultation. Breath sounds equal bilaterally. GASTROINTESTINAL: Abdomen soft, non-tender, nondistended. Hepatic and splenic margins not palpable. MUSCULOSKELETAL: Extremities without clubbing, cyanosis, or edema. No obvious deformities. NEUROLOGICAL: Awake and alert. No obvious cranial nerve deficits. Motor grossly within normal limits. 4 out of 5 muscle strength in the arms and legs. Normal speech. PSYCHIATRIC: Appropriate mood and affect; insight and judgment normal. Hospital Course Patient is a 77-year-old male who presented to the emergency department at [facility] this morning with diarrhea that has been ongoing on and off since Sunday. Patient states that he has had diarrhea on Sunday and Sunday then took some Imodium symptoms resolved and he reports again this last evening he had some more diarrhea. And had diarrhea 4-5 times per day. He states it is a light brown and is watery in nature. He denies any blood or mucus. Denies any black or tarry stools has a history of chemotherapy. Most recently on September 03. He sees Dr. QUINONEZ his oncologist, and decided to come to the hospital since he was still having the diarrhea. Denies any recent antibiotics except last March 12, 2017 sometimes get short of breath more so with chemo therapy. Patient did not want to get worse and therefore came to the emergency department for evaluation. Has history of colon cancer with metastasis to the liver and lung with history of a resection of the colon cancer and history of liver resection and history of a lung biopsy Patient also states that he had previously been diagnosed with asbestosis and acid reflux and hypertension 09-13 PATIENT IS HYPOTENSIVE TODAY NO DIARRHEA WILL GIVE A FLUID BOLUS AM LABS DW PATIENT AND RN AND CM PT AND OT MONITOR TODAY 6-1 HAD A FEVER OF 100.2 BUT HAS BEEN CLEARED BY ONCOLOGY WILL DC TO HOME TODAY AUGMENTIN PO LACTINEX PO FOLLOW UP WITH ONCOLOGY NEXT WEEK DW RN AND PT AND CM AND ONCOLOGY Pt Condition on Discharge: Good Discharge Disposition: Discharge Home Discharge Time: > 30 minutes Discharge Instructions DIET: Follow Instructions for: Heart Healthy Diet Speech Therapy-Diet Recommends: Regular Activities you can perform: Regular-No Restrictions Follow up Referrals: Oncology/Hematology - 3-5 Days with Andrew Quinonez MD New Medications: Amoxicillin-Clavulanate (Augmentin) 500-125 mg Tab 500 MG PO Q8H for Infection, #30 TAB 0 Refills Lactobacillus Acidophilus (Lactinex) 1 Chew 1 TAB CHEW TID for Nutritional Supplement, #45 TAB 0 Refills Metronidazole (Flagyl) 500 Mg Tab 500 MG PO TID for Infection, #30 TAB 0 Refills Continued Medications: Amlodipine (Amlodipine) 10 Mg Tab 10 MG PO DAILY for Blood Pressure Management, #30 TAB 0 Refills (This prescription has been renewed) Jv Felton DO Sep 14, 2017 11:21
[2017-09-14 12:00] VITALS: PULSE 95
== END 2017-09-14 14:39 | disposition home or self-care (01) | DRG 391 ==
LOC: NEPE 05:38 → NEDA 08:40 → HCIN 11:56 → OBSVTOIN 12:13
PROVIDERS: ADMIT Hospitalist; ATTEND Hospitalist
DX: R19.7 Diarrhea, unspecified (principal); D61.810 Antineoplastic chemotherapy induced pancytopenia; J90 Pleural effusion, not elsewhere classified; C78.00 Secondary malignant neoplasm of unspecified lung; C78.7 Secondary malignant neoplasm of liver and intrahepatic bile duct; I10 Essential (primary) hypertension; T45.1X5A Adverse effect of antineoplastic and immunosuppressive drugs, initial encounter; J61 Pneumoconiosis due to asbestos and other mineral fibers; R50.9 Fever, unspecified; M19.90 Unspecified osteoarthritis, unspecified site; K21.9 Gastro-esophageal reflux disease without esophagitis; Z90.49 Acquired absence of other specified parts of digestive tract; Z87.891 Personal history of nicotine dependence; Z85.048 Personal history of other malignant neoplasm of rectum, rectosigmoid junction, and anus; Z92.3 Personal history of irradiation
CPT/HCPCS: 71045; 80053; 81001; 82550; 82948; 83036; 83605; 83690; 83735; 83880; 84100; 84439; 84443; 84484; 85007; 85027; 86140; 87040; 87205; 87493; 87506; 93005; G8987-GO; G8987-GP; G8988-GO; G8988-GP; G8989-GO; J0692; J1644; J7030; J7040